=== PATIENT | female | born 1960 ===

== ENCOUNTER → 2021-02-19 07:51 | Outpatient (BNVA) | payer MEDICARE, SELFPAY | PROVIDERS: PCP Internal Medicine; Visit Provider Internal Medicine | DX: E06.3 Autoimmune thyroiditis (principal); M85.80 Other specified disorders of bone density and structure, unspecified site; E55.9 Vitamin D deficiency, unspecified | CPT/HCPCS: 99212 ==

== ENCOUNTER 2021-02-21 10:44 | Outpatient (REF) | payer MEDICARE, SELFPAY ==
[2021-02-21 14:28] LABS: Alanine Aminotransferase 20 U/L (0-31); Albumin Level 4.2 g/dL (3.5-5.0); Alkaline Phosphatase 85 U/L (39-117); Anion Gap 13 (12-20); Aspartate Amino Transferase 28 U/L (5-31); Bilirubin Total 1.3 mg/dL (0.0-1.0); Blood Urea Nitrogen 12 mg/dL (9-16); Calcium 9.4 mg/dL (8.4-10.2); Carbon Dioxide 29 mmol/L (22-29); Chloride 104 mmol/L (96-108); Estimated Glomerular Filt Rate > 60; Glucose Random 98 mg/dL (60-115); Phosphorus 3.8 mg/dL (2.7-4.5); Sodium 142 mmol/L (135-145); Total Protein 6.9 g/dL (6.5-8.0)
[2021-02-21 14:51] LABS: Thyroid Stimulating Hormone 1.49 uIU/mL (0.32-4.0)
[2021-02-24 16:20] LABS: Calcium (PTHI) 9.4 mg/dL (8.6-10.4); PTHI 68 pg/mL (14-64)
== END 2021-02-21 10:45 | disposition home or self-care (01) ==
LOC: HO.HMGCLDS 10:44
PROVIDERS: PCP Internal Medicine; Visit Provider Internal Medicine
DX: E06.3 Autoimmune thyroiditis (principal); M85.80 Other specified disorders of bone density and structure, unspecified site; E55.9 Vitamin D deficiency, unspecified
CPT/HCPCS: 36415; 80053; 82306; 83970; 84100; 84439; 84443

== ENCOUNTER 2021-02-24 11:42 | Outpatient (REF) | payer MEDICARE, SELFPAY ==
[2021-02-24 13:47] LABS: Alanine Aminotransferase 18 U/L (0-31); Albumin Level 4.3 g/dL (3.5-5.0); Alkaline Phosphatase 91 U/L (39-117); Aspartate Amino Transferase 24 U/L (5-31); Bilirubin Direct 0.4 mg/dL (0.0-0.5); Bilirubin Total 1.1 mg/dL (0.0-1.0); Total Protein 7.2 g/dL (6.5-8.0)
== END 2021-02-24 11:43 | disposition home or self-care (01) ==
LOC: HO.10HDL 11:42
PROVIDERS: Visit Provider Internal Medicine
DX: E06.3 Autoimmune thyroiditis (principal)
CPT/HCPCS: 36415; 80076

== ENCOUNTER 2021-02-26 | Outpatient (REF) | payer MEDICARE, SELFPAY ==
[2021-02-26 11:43] LABS: Creatinine, mg/dL 37.95
[2021-02-26 16:40] LABS: Creatinine, 24Hr Urine 0.9 G/Day (1.0-2.0); Total Volume 24 Hour Urine 2500 mL
[2021-02-28 20:17] LABS: Calcium, 24 Hr Urine 143 mg/24 h; Calcium/Creatinine Ratio 139 mg/g creat (30-275); Creatinine 24Hr Urine 1.03 g/24 h (0.50-2.15)
== END 2021-02-26 00:01 | disposition home or self-care (01) ==
LOC: HO.HMGCLNP
PROVIDERS: Visit Provider Internal Medicine
DX: M85.80 Other specified disorders of bone density and structure, unspecified site (principal)
CPT/HCPCS: 82340; 82570

== ENCOUNTER 2021-03-11 08:32 | Outpatient (REF) | payer MEDICARE, SELFPAY ==
--- NOTE | ~2021-03-11 | US_ITS ---
EXAMINATION: US ABDOMEN COMPLETE CLINICAL INFORMATION: Elevated liver function tests. COMPARISON: MRI abdomen without contrast 04/25/2011. CT abdomen with intravenous contrast dated 01/28/2010. Ultrasound abdomen complete dated 01/10/2008. TECHNIQUE: Real-time imaging of the abdominal viscera. FINDINGS: PANCREAS: Normal. ABDOMINAL AORTA: The proximal, mid, and distal segments are normal in caliber. INFERIOR VENA CAVA: Visualized portions are normal. LIVER: Normal. The liver is normal in size. The liver contour is normal. Parenchymal echogenicity is normal. No focal hepatic lesion. There is no intrahepatic biliary duct dilatation seen. GALLBLADDER: Surgically absent. COMMON BILE DUCT: Normal in caliber measuring 0.85 cm in diameter. RIGHT KIDNEY: Normal. No hydronephrosis. No renal calculi or focal parenchymal lesions. The kidney measures 10.0 cm in maximum dimension. LEFT KIDNEY: There is an echogenic shadowing calculus in the mid left kidney measuring 0.3 x 0.2 x 0.2 cm that is nonobstructing. No hydronephrosis or focal parenchymal lesions. The kidney measures 9.8 cm in maximum dimension. SPLEEN: Normal. The spleen measures 8.0 cm in maximum dimension. FREE FLUID: None. US/US abdomen complete IMPRESSION: 1. Normal-appearing liver. 2. The patient is status post cholecystectomy. 3. There is a nonobstructing 0.3 cm left renal calculus.
== END 2021-03-11 08:33 | disposition home or self-care (01) ==
LOC: HO.HMGCX 08:32
PROVIDERS: PCP Internal Medicine; Visit Provider Internal Medicine
DX: R79.89 Other specified abnormal findings of blood chemistry (principal); E80.6 Other disorders of bilirubin metabolism
CPT/HCPCS: 76700

== ENCOUNTER → 2021-04-08 12:36 | Outpatient (BNVA) | payer MEDICARE, SELFPAY | PROVIDERS: PCP Internal Medicine; Referring Provider Internal Medicine; Visit Provider Surgery | DX: K42.9 Umbilical hernia without obstruction or gangrene (principal) | CPT/HCPCS: 99202 ==

== ENCOUNTER 2021-05-08 14:13 | Outpatient (REF) | payer MEDICARE, SELFPAY ==
--- NOTE | ~2021-05-08 | MM_ITS ---
EXAMINATION: BONE DENSITOMETRY CLINICAL INDICATION: Encounter for screening for osteoporosis. COMPARISON: Previous BD dated 01/21/2017 and baseline BD dated 04/03/2010. TECHNIQUE: Using a [employer] DXA System (software version: 13.1) manufactured by [employer], dual-energy x-ray absorptiometry was performed of the lumbar spine and left hip. The images are of good technical quality. Summary results are attached. FINDINGS: AP SPINE L1-L4: Current: BMD 0.985 g/cm2, Z-score 0.4, T-score -1.6, osteopenia, 5.7% decrease from previous, 15.5% decrease from baseline (<5% change is not significant). Prior: BMD 1.045 g/cm2. Baseline: BMD 1.166 g/cm2. LEFT FEMUR, NECK: Current: BMD 0.717 g/cm2, Z-score -0.6, T-score -2.3, osteopenia. Prior: BMD 0.743 g/cm2. Baseline: BMD 0.859 g/cm2. LEFT FEMUR, TOTAL: Current: BMD 0.724 g/cm2, Z-score -0.8, T-score -2.3, osteopenia, 3.5% decrease from previous, 14.7% decrease from baseline (<5% change is not significant). Prior: BMD 0.750 g/cm2. Baseline: BMD 0.849 g/cm2. IDENTIFIED RISK FACTORS: Secondary osteoporosis, menopause. HISTORY OF FRACTURE: None listed. MEDICATIONS: Calcium supplements or multivitamin, vitamin D. MM/XR DEXA axial skeleton IMPRESSION: 1. DIAGNOSIS: Osteopenia based on the lowest T-score value of -2.3 in the femoral neck and total femur applying World Health Organization criteria. 2. 10-YEAR FRACTURE RISK PREDICTION, FRAX: Major osteoporotic fracture (clinical spine, forearm, hip or shoulder) 5.8%. Hip fracture 1.1%. 3. Treatment Recommendations: NOF guidelines recommend consideration for treatment in postmenopausal women and men age 50 and older presenting with the following: -A hip or vertebral (clinical or morphometric) fracture. -T-score less than or equal to -2.5 at the femoral neck or spine after appropriate evaluation to exclude secondary causes. -Low bone mass at the hip or spine and a 10-year fracture probability by FRAX of greater than or equal to 3% for hip fracture or greater than or equal to 20% for major osteoporotic fracture based on the [place] adapted WHO algorithm. 4. Other Recommendations: All treatment decisions require clinical judgment and consideration of individual patient factors, including patient preferences, comorbidities, previous drug use, risk factors not captured in the FRAX model (e.g. frailty, falls, vitamin D deficiency, increased bone turnover, interval significant decline in bone density) and possible under or overestimation of fracture risk by FRAX. Additional medical evaluation for secondary cause of low bone mineral density may be appropriate. FUTURE SCAN RECOMMENDATION: People with diagnosed cases of osteoporosis or at high risk for fracture should have regular bone mineral density tests. For patients eligible for Medicare, routine testing is allowed once every 2 years. The testing frequency can be increased to one year for patients who have rapidly progressing disease, those who are receiving or discontinuing medical therapy to restore bone mass, or have additional risk factors.
== END 2021-05-08 14:14 | disposition home or self-care (01) ==
LOC: HO.MAMMO 14:13
PROVIDERS: PCP Internal Medicine; Visit Provider Internal Medicine Rheumatology
DX: Z13.820 Encounter for screening for osteoporosis (principal); Z78.0 Asymptomatic menopausal state; M85.89 Other specified disorders of bone density and structure, multiple sites
CPT/HCPCS: 77080

== ENCOUNTER 2021-12-23 10:38 | Outpatient (REF) | payer MEDICARE, SELFPAY ==
--- NOTE | ~2021-12-23 | MM_ITS ---
EXAMINATION: MM SCREENING DIGITAL BREAST TOMOSYNTHESIS, BILATERAL CLINICAL INFORMATION: Screening. Asymptomatic. Prior [id number] mammography currently unavailable. No known family history breast cancer. The lifetime risk of breast cancer based on the Tyrer-Cuzick Model is 7%. COMPARISON: None. TECHNIQUE: Digital breast tomosynthesis is performed in both the craniocaudal and mediolateral oblique views along with computer-aided detection (CAD). Synthesized 2D images are generated from the tomosynthesis. Additional left MLO view is provided. FINDINGS: The breasts are heterogeneously dense, which may obscure small masses (ACR BI-RADS breast composition Category c). Breast tissue composition borders on average fibroglandular. There is benign coarse calcification posterior 11:00 left breast. Other scattered punctate round and mildly coarse calcifications are present in both breasts. There is no significant mass or architectural abnormality. Intramammary node suggested left upper outer quadrant. The axilla are unremarkable. Radiology department staff will attempt to retrieve prior [id number] mammography to allow for comparison in an addendum report. MM/MM tomosynthesis screening BI IMPRESSION: No mammographic evidence of malignancy. ASSESSMENT: BI-RADS 2: Benign RECOMMENDATION: Routine annual mammography screening. This patient's information was entered into a reminder system with a target due date for their next mammogram.
== END 2021-12-23 10:39 | disposition home or self-care (01) ==
LOC: HO.MAMMO 10:38
PROVIDERS: PCP Internal Medicine; Visit Provider Internal Medicine
DX: Z12.31 Encounter for screening mammogram for malignant neoplasm of breast (principal)
CPT/HCPCS: 77063; 77067

== ENCOUNTER 2022-02-13 07:52 | Outpatient (REF) | payer MEDICARE, SELFPAY ==
[2022-02-13 11:33] LABS: MANUAL DIFF FLAG NO
[2022-02-13 11:38] LABS: Basophils Absolute Auto 0.1 X10*3/uL (0.0-0.2); Basophils Percent Auto 1.1 % (0-2); Eosinophils Absolute Auto 0.2 X10*3/uL (0.0-0.4); Eosinophils Percent Auto 3.2 % (0-4); Hematocrit 40.6 % (37.0-47.0); Hemoglobin 13.1 g/dl (12.0-16.0); Imm Gran Abs Auto 0.01 X10*3/uL (0.00-0.03); Imm Gran Pct Auto 0.2 % (0.0-0.4); Mean Corpuscular HGB Conc 32.3 g/dl (31.0-35.0); Mean Corpuscular Hemoglobin 30.4 pg (27.0-33.0); Mean Corpuscular Volume 94.2 fL (80.0-98.0); Mean Platelet Volume 12.4 fL (9.4-12.3); Monocytes Absolute Auto 0.5 X10*3/uL (0.1-1.2); Monocytes Percent Auto 8.8 % (2-11); Neutrophils Absolute Auto 2.7 x10*3/uL (2.0-8.3); Neutrophils Percent Auto 49.7 % (45-73); Platelet Count 245 X10*3/uL (160-400); Red Blood Count 4.31 X10*6/uL (4.20-5.50); Red Cell Distribution Width 12.3 % (11.0-16.0); White Blood Count 5.3 X10*3/uL (4.8-10.8)
[2022-02-13 11:55] LABS: Alanine Aminotransferase 22 U/L (0-31); Albumin Level 4.2 g/dL (3.5-5.0); Alkaline Phosphatase 93 U/L (39-117); Anion Gap 12 (12-20); Aspartate Amino Transferase 25 U/L (5-31); Bilirubin Total 1.1 mg/dL (0.0-1.0); Blood Urea Nitrogen 13 mg/dL (9-16); C Reactive Protein 0.08 mg/dL (< or = 0.50); Carbon Dioxide 27 mmol/L (22-29); Chloride 107 mmol/L (96-108); Cholesterol 220 mg/dL; Estimated Glomerular Filt Rate > 60; Glucose Random 91 mg/dL (60-115); HDL Cholesterol 66 mg/dL; LDL Cholesterol Calculated 133 mg/dl; Potassium 4.6 mmol/L (3.3-5.1); Sodium 141 mmol/L (135-145); Total Protein 7.2 g/dL (6.5-8.0); Triglycerides 105 mg/dL
[2022-02-13 12:18] LABS: Free T4 (Free Thyroxine) 0.88 ng/dL (0.71-1.85); Thyroid Stimulating Hormone 3.61 uIU/mL (0.32-4.0); Vitamin D 25-OH Total 38.7 ng/mL (>30)
[2022-02-13 12:25] LABS: Erythrocyte Sedimentation Rate 9 MM/HR (0-20); Folate 16.9 ng/mL (> or = 4.0); Vitamin B12 851 pg/mL (200-900)
[2022-02-16 17:01] LABS: Complement C3 112 mg/dL (83-193)
== END 2022-02-13 07:53 | disposition home or self-care (01) ==
LOC: HO.HMGCLDS 07:52
PROVIDERS: PCP Internal Medicine; Visit Provider Internal Medicine Rheumatology
DX: M35.00 Sjogren syndrome, unspecified (principal); E78.00 Pure hypercholesterolemia, unspecified; K21.9 Gastro-esophageal reflux disease without esophagitis; N20.0 Calculus of kidney; H16.223 Keratoconjunctivitis sicca, not specified as Sjogren's, bilateral; M25.50 Pain in unspecified joint
CPT/HCPCS: 36415; 80053; 80061; 82306; 82607; 82746; 84439; 84443; 84550; 85025; 85652; 86140; 86160

== ENCOUNTER 2022-04-28 14:20 | Outpatient (REF) | payer MEDICARE, SELFPAY ==
--- NOTE | ~2022-04-28 | XR_ITS ---
EXAMINATION: XR CHEST 2 VIEWS CLINICAL INFORMATION: Chest pain. COMPARISON: Chest radiographs dated 12/23/2017. TECHNIQUE: Frontal and lateral views of the chest were obtained. FINDINGS: The heart, great vessels, pulmonary vasculature and mediastinum are normal. The lungs show no focal infiltrate, effusion or pneumothorax. There is no acute osseous abnormality. XR/XR chest 2V IMPRESSION: No active cardiopulmonary disease.
--- NOTE | ~2022-04-28 | XR_ITS ---
EXAMINATION: XR HIP, RIGHT CLINICAL INFORMATION: Pain. COMPARISON: None TECHNIQUE: AP and frog-leg lateral views of the right hip. FINDINGS: Bones and soft tissues are normal. No fracture. Alignment is anatomic. Hip joint space is maintained. A tiny enthesophyte arises from the greater tuberosity of the proximal right femur. XR/XR hip RT min 2V IMPRESSION: Normal right hip.
== END 2022-04-28 14:21 | disposition home or self-care (01) ==
LOC: HO.XRAY 14:20
PROVIDERS: PCP Internal Medicine; Visit Provider Internal Medicine
DX: R07.9 Chest pain, unspecified (principal); M25.551 Pain in right hip
CPT/HCPCS: 71046; 73502

== ENCOUNTER 2023-01-06 11:00 | Outpatient (REF) | payer MEDICARE, SELFPAY ==
--- NOTE | ~2023-01-06 | MM_ITS ---
EXAMINATION: MM SCREENING DIGITAL BREAST TOMOSYNTHESIS, BILATERAL CLINICAL INFORMATION: Screening. Asymptomatic. The lifetime risk of breast cancer based on the Tyrer-Cuzick Model is 5%. COMPARISON: Mammography: 12/23/2021; outside mammography 08/22/2020 ([place], [place]). TECHNIQUE: Digital breast tomosynthesis is performed in both the craniocaudal and mediolateral oblique views along with computer-aided detection (CAD). Synthesized 2D images are generated from the tomosynthesis. Additional left MLO view is provided. FINDINGS: The breasts are heterogeneously dense, which may obscure small masses (ACR BI-RADS breast composition Category c). Parenchymal pattern is similar to prior studies. There is no developing density or architectural abnormality. The axilla and skin contours are unremarkable. Again, there is some coarse benign calcification posterior 6 central inner left breast and scattered stable punctate calcifications mid to posterior central upper outer right breast. There are no significant masses, abnormal calcifications, or other abnormalities. No significant changes from prior studies. MM/MM tomosynthesis screening BI IMPRESSION: No mammographic evidence of malignancy. ASSESSMENT: BI-RADS 2: Benign RECOMMENDATION: Routine annual mammography screening. This patient's information was entered into a reminder system with a target due date for their next mammogram.
== END 2023-01-06 11:01 | disposition home or self-care (01) ==
LOC: HO.MAMMO 11:00
PROVIDERS: PCP Internal Medicine; Visit Provider Internal Medicine
DX: Z12.31 Encounter for screening mammogram for malignant neoplasm of breast (principal)
CPT/HCPCS: 77063; 77067

== ENCOUNTER 2023-01-08 07:20 | Outpatient (REF) | payer MEDICARE, SELFPAY ==
[2023-01-08 11:34] LABS: Appearance Urine Clear; Color Urine Yellow; Glucose Urine UA Negative (Negative); Leukocyte Esterase Urine Moderate (2+) (Negative); Nitrite Urine Negative (Negative); Specific Gravity - Urine 1.015 (1.005-1.025); UMIC TRIGGER UA YES; Urine Blood Trace (Negative); Urine Ketones Negative (Negative); Urine Protein Negative (Neg-Trace)
[2023-01-08 11:34] LABS: MANUAL DIFF FLAG NO
[2023-01-08 11:40] LABS: Bacteria Urine None Seen (None Seen); Hyaline Casts Urine 0-2 /LPF (0-2); Squamous Epithelial Cell Urine 0-2 /HPF (0-2)
[2023-01-08 11:40] LABS: Basophils Absolute Auto 0.1 X10*3/uL (0.0-0.2); Basophils Percent Auto 0.9 % (0-2); Eosinophils Absolute Auto 0.1 X10*3/uL (0.0-0.4); Eosinophils Percent Auto 2.4 % (0-4); Hematocrit 41.8 % (37.0-47.0); Hemoglobin 13.6 g/dl (12.0-16.0); Lymphocytes Absolute Auto 2.7 X10*3/uL (1.2-4.9); Lymphocytes Percent Auto 48.6 % (20-40); Mean Corpuscular HGB Conc 32.5 g/dl (31.0-35.0); Mean Corpuscular Hemoglobin 30.6 pg (27.0-33.0); Mean Corpuscular Volume 94.1 fL (80.0-98.0); Mean Platelet Volume 12.6 fL (9.4-12.3); Monocytes Absolute Auto 0.5 X10*3/uL (0.1-1.2); Monocytes Percent Auto 9.7 % (2-11); Neutrophils Absolute Auto 2.1 x10*3/uL (2.0-8.3); Neutrophils Percent Auto 38.4 % (45-73); Platelet Count 244 X10*3/uL (160-400); Red Blood Count 4.44 X10*6/uL (4.20-5.50); Red Cell Distribution Width 12.4 % (11.0-16.0); White Blood Count 5.5 X10*3/uL (4.8-10.8)
[2023-01-08 12:22] LABS: Alanine Aminotransferase 35 U/L (0-31); Albumin Level 4.1 g/dL (3.5-5.0); Alkaline Phosphatase 92 U/L (39-117); Amylase 132 U/L (28-100); Anion Gap 12 (12-20); Aspartate Amino Transferase 32 U/L (5-31); Bilirubin Total 1.3 mg/dL (0.0-1.0); Blood Urea Nitrogen 13 mg/dL (9-16); C Reactive Protein 0.11 mg/dL (< or = 0.50); Calcium 9.6 mg/dL (8.4-10.2); Carbon Dioxide 28 mmol/L (22-29); Chloride 106 mmol/L (96-108); Cholesterol 218 mg/dL; Erythrocyte Sedimentation Rate 7 MM/HR (0-20); Estimated Glomerular Filt Rate > 60; Glucose Random 91 mg/dL (60-115); HDL Cholesterol 78 mg/dL; LDL Cholesterol Calculated 110 mg/dl; Sodium 142 mmol/L (135-145); Triglycerides 150 mg/dL
[2023-01-08 12:38] LABS: Folate 16.2 ng/mL (> or = 4.0); Free T4 (Free Thyroxine) 0.88 ng/dL (0.71-1.85); Thyroid Stimulating Hormone 6.61 uIU/mL (0.32-4.0); Vitamin B12 1181 pg/mL (200-900); Vitamin D 25-OH Total 40.4 ng/mL (>30)
== END 2023-01-08 07:21 | disposition home or self-care (01) ==
LOC: HO.HMGCLDS 07:20
PROVIDERS: PCP Internal Medicine; Visit Provider Internal Medicine
DX: M35.00 Sjogren syndrome, unspecified (principal); R74.8 Abnormal levels of other serum enzymes; E78.00 Pure hypercholesterolemia, unspecified; K21.9 Gastro-esophageal reflux disease without esophagitis; M85.80 Other specified disorders of bone density and structure, unspecified site; E55.9 Vitamin D deficiency, unspecified; N20.0 Calculus of kidney
CPT/HCPCS: 36415; 80053; 80061; 81001; 82150; 82306; 82607; 82746; 84439; 84443; 85025; 85652; 86140

== ENCOUNTER 2023-02-04 09:34 | Outpatient (REF) | payer MEDICARE, SELFPAY ==
[2023-02-10 01:29] LABS: Acetylcholine Receptor Binding <0.30 nmol/L
[2023-02-13 18:23] LABS: Acetylcholine Recep Modulating 10
== END 2023-02-04 09:35 | disposition home or self-care (01) ==
LOC: HO.LAB 09:34
PROVIDERS: PCP Internal Medicine; Visit Provider Psychiatry & Neurology Neurology
DX: H02.409 Unspecified ptosis of unspecified eyelid (principal); M35.05 Sjogren syndrome with inflammatory arthritis
CPT/HCPCS: 36415; 82550; 83519; 85652

== ENCOUNTER 2023-03-29 12:05 | Outpatient (REF) | payer MEDICARE, SELFPAY ==
[2023-03-29 14:09] LABS: Free T4 (Free Thyroxine) 0.88 ng/dL (0.71-1.85); Thyroid Stimulating Hormone 3.38 uIU/mL (0.32-4.0)
== END 2023-03-29 12:06 | disposition home or self-care (01) ==
LOC: HO.HMGCLDS 12:05
PROVIDERS: PCP Internal Medicine; Visit Provider Internal Medicine
DX: R94.6 Abnormal results of thyroid function studies (principal)
CPT/HCPCS: 36415; 84439; 84443

== ENCOUNTER 2024-02-21 10:29 | Outpatient (AMB) | payer MEDICARE, SELFPAY ==
[2024-02-21 10:31] VITALS: BP 102/68; PULSE 73; O2SAT 97; BMI 20.9
--- NOTE | 2024-02-21 10:31 | MHC.PC.OV ---
Vital Signs 02/21/24 10:31 Height 5 ft Weight 107 lb BMI 20.9 BP 102/68 Blood Pressure Location Lt brachial Position Sitting Pulse 73 Pulse Source Pulse Oximeter Pulse Oximetry (%) 97 Oxygen Delivery Method Room Air Intake Visit Reasons: Annual Exam Intake Note: Patient is here today for a physical. 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 Medication List - Last Reconciled 02/21/24 by Miranda Potts PA-C ascorbate calcium (vitamin C) 500 mg PO DAILY famotidine 20 mg PO DAILY comkuplvkhxb-izfc-ppxqb acid 18-400 mg-mcg (Centrum Women) 1 tab PO DAILY omega-3 fatty acids (Fish Oil Concentrate) 1,000 mg PO DAILY vitamin E 200 units PO DAILY Tobacco use date assessed: 02/21/24 Fall risk assessment: No Falls in past year Last assessed Fall Risk: 02/21/24 Dental Screening Dental Screen Date: 02/21/24 Did you have a dental visit in the last 12 months?: Yes Did you have a dental problem in the last 6 months where you did not have access to dental care?: No Was dental information given to patient?: Patient has dentist HPI Annual Exam HPI Details 63-year-old female with past medical history of Greg's, GERD, IBS last seen by Dr. Courtney 12/17/2022 coming in for annual exam.? In review of the notes, the patient had a mammogram completed 01/19/2024 BI-RADS 1 follow up annually.?Patient also completed the DEXA scan 02/07/2024 which found osteopenia.?Pap smear was completed 03/10/2023 was negative.?Patient was seen by Neurology 02/04/2023 for ptosis was sent for labs and follow-up in 6 weeks and has not followed up since. MRI was negative for any abnormality. She has been having phlegm and often has to clear her throat which has been ongoing for the last year or so. Her acid reflux has been under good control but she does note she has a lot of diet restrictions and also has to sleep with the head of the bed elevated. She has been using famotidine as needed [id number]. She also mentioned she has not followed up with neurology since her MRI. Was seen by a doctor in [place] and was told her cholesterol was elevated. She is unsure of the status of her last colonoscopy. Seen by the eye doctor last week but due to system outage has to reschedule. [facility] Medical History (Updated 02/21/24 @ 11:20 by Miranda Potts PA-C) Pineal gland cyst Hemorrhoids Left renal stone Bile salt-induced diarrhea Irritable bowel syndrome Sjogrens syndrome GERD (gastroesophageal reflux disease) Hyperbilirubinemia Vitamin D deficiency Greg's disease Surgical History History of fundoplication History of elbow surgery History of tonsillectomy History of Del fundoplication Hx of rotator cuff surgery Hx of cholecystectomy Hx of colonoscopy History of right lateral epicondylitis Family History (Updated 12/17/22 @ 10:48 by Ruslan Courtney MD) Father FH: prostate cancer Mother Arthritis Glaucoma Paternal Grandfather Myocardial infarct Maternal Grandfather Skin cancer Sister Ovarian cancer Social History Housing: House Alcohol intake: never Patient Tobacco Use Status: Never used Tobacco e-Cigarette/Vaping Use: Never Used Second Hand Smoke Exposure: No service: No Current occupational status: unemployed Cognitive needs: No Hearing needs: No Vision needs: Yes Questionnaire PHQ-9 Over the last 2 weeks, how often have you been bothered by any of the following problems? 1. Little interest or pleasure in doing things: not at all 2. Feeling down, depressed, or hopeless: several days 3. Trouble falling or staying asleep, or sleeping too much: not at all 4. Feeling tired or having little energy: not at all 5. Poor appetite or overeating: not at all 6. Feeling bad about yourself - or that you are a failure or have let yourself or your family down: not at all 7. Trouble concentrating on things, such as reading the newspaper or watching television: not at all 8. Moving or speaking so slowly that other people could have noticed. Or the opposite - being so fidgety or restless that you have been moving around a lot more than usual: not at all 9. Thoughts that you would be better off or of hurting yourself in some way: not at all Total score: 1 Depression Screening Interpretation: Negative Depression Screening Done: Yes [id number] - PHQ-9 Billing: Yes Source: Developed by Drs. Kedar Butler, Simona Mireles, Curtis Arita and colleagues, with an educational vaishali from [employer]. Thrive Questionnaire Date Thrive assessed: 02/21/24 I am a: Patient What is your living situation today?: I have a steady place to live Within the past 12 months, did the food you bought not last and you didn't have the money to get more?: Never true Within the past 12 months, did you worry whether your food would run out before you got money to buy more?: Never true Do you have trouble paying for medicines?: No Do you have trouble getting transportation to medical appointments?: No Do you have trouble paying your heating and electricity bill?: No Do you have trouble taking care of your child, family member or friend?: No Do you have trouble with day-to-day activities such as bathing, preparing meals, shopping, managing finances, etc.?: No Are you currently unemployed and looking for a job?: No Are you interested in more education?: No THRIVE Score: 0 AUDIT C Alcohol Use Questionnaire (AUDIT-C) 1. How often do you have a drink containing alcohol?: Never 2. How many drinks containing alcohol do you have on a typical day when you are drinking?: 1 or 2 3. How often do you have six or more drinks on one occasion?: Never Total Score: 0 RENETTA-7 AMB Questionnaire RENETTA-7 Date RENETTA - 7 assessed: 02/21/24 Feeling nervous, anxious, or on edge: 0 = Not at all Not being able to stop or control worryin = Not at all Worrying too much about different things: 0 = Not at all Trouble relaxin = Not at all Being so restless that it is hard to sit still: 0 = Not at all Becoming easily annoyed or irritable: 0 = Not at all Feeling afraid as if something awful might happen: 0 = Not at all Total RENETTA-7 score (0-4 normal; 5-9 mild; 10-14 moderate; 15-21 severe): 0 Source: Developed by Simona Abel [employer], Curtis Arita and colleagues, with an educational vaishali from [employer]. RENETTA-7 Assessment Billing RENETTA-7 Assessment Tool: RENETTA-7 Assessment 75085 Review of Systems Const Denies body aches, Denies fatigue, Denies fever(s), Denies frequent falls, Denies headache(s) and Denies weakness Eyes Reports no additional complaints and Denies change in vision ENT Details: Reports of phlegm throughout the day worse in the morning. Denies dysphagia, Denies dizziness, Denies facial pain, Denies headache(s), Denies nasal congestion and Denies odynophagia Card Denies chest pain, Denies syncope, Denies irregular heart rhythm, Denies leg edema, Denies lightheadedness and Denies dyspnea Resp Denies cough and Denies dyspnea GI Denies constipation, Denies dysphagia, Denies dyspepsia, Denies diarrhea, Denies nausea, Denies odynophagia and Denies vomiting Denies urinary frequency, Denies dysuria, Denies urinary hesitancy and Denies urinary urgency Musc Details: Right hip pain worse with ambulation Denies back pain and Denies myalgias Skin/Breast Reports system reviewed and no additional complaints, except as documented Neuro Denies dizziness, Denies syncope, Denies frequent falls, Denies headache(s) and Denies weakness Psych Reports no additional complaints Endo Denies fatigue Physical exam (Primary Care) Vital Signs: Last Vital Signs Pulse 73 02/21/24 10:31 BP 102/68 02/21/24 10:31 Pulse Ox 97 02/21/24 10:31 Oxygen Delivery Method Room Air 02/21/24 10:31 BMI result Body Mass Index 20.9 Tobacco/Smoking Status: Tobacco use Status Tobacco use date assessed 02/21/24 02/21/24 10:34 Patient Tobacco Use Status Never used Tobacco 02/21/24 10:34 e-Cigarette/Vaping Use Never Used 02/21/24 10:34 PHQ-9: PHQ-9 Score PHQ-9: Total score 1 02/21/24 11:33 Depression Screening Interpretation: Negative Thrive Assessment: Date of Thrive Assessment Date Thrive assessed 02/21/24 02/21/24 10:34 Const General: cooperative, healthy appearing, comfortable and no acute distress Orientation/consciousness: patient oriented x3 HENMT Head: Yes normocephalic Ears: hearing grossly normal bilaterally, external ears normal, TM's normal bilaterally and EAC's normal General nose exam: Normal external nose present Face and sinus: Yes normal facial exam and Yes sinuses nontender Mouth: Normal oral and palatal mucosa present and tongue normal Throat: Yes posterior oropharynx normal Eyes General: appearance normal, both eyes and all related structures Conjunctivae: conjunctivae normal Pupils: Equal, round and reactive pupils present EOM: EOMs intact bilaterally and No Nystagmus present Neck Neck: Yes normal visual inspection, Yes full ROM and Yes no lymphadenopathy Chest Chest palpation & inspection: normal inspection of the chest Resp Effort & Inspection: normal respiratory effort Auscultation: clear to auscultation bilaterally, no crackles, no rales, no rhonchi, no wheezes and breath sounds present Cardio Rate: regular rate Rhythm: regular rhythm Peripheral pulses: radial pulses present and dorsalis pedis present GI Inspection: Yes normal to inspection and No Abdominal wall edema Palpation (GI): Soft to palpation, not firm and nontender Auscultation: normal bowel sounds Rectal Exam - Female: deferred General: Yes no CVA tenderness Back/Spine/Pelvis Back: no CVA tenderness Skin General skin exam: no rashes or lesions noted Neuro General: patient oriented x3 Cranial nerves: Yes Equal, round and reactive pupils present, Yes Midline tongue present, Yes Ability to bilaterally elevate shoulders present and No Nystagmus present Gait exam (Neuro): Normal gait present Extrem Other: Tenderness to palpation over posterior lateral aspect of right hip General: Yes normal to inspection, Yes full ROM, No no pedal edema and No edema Psych Speech and movement: Normal speech and movement present Affect: normal affect Insight: Good insight present (Psych) Judgement: Good judgement present (Psych) Assessment and Plan Assessment & Plan (1) Annual physical exam: Code(s): Z00.00 - Encounter for general adult medical examination without abnormal findings Plan: Patient is up-to-date on all recommended screenings for her age. She is unsure about the date of her last colonoscopy and will have records faxed from [place] to our office. Patient is reminded about blood work. She is unsure if her tetanus shot is up-to-date and will have these records faxed from [place] as well. (2) Hip pain: Code(s): M25.559 - Pain in unspecified hip Qualifiers: Laterality: right Qualified Code(s): M25.551 - Pain in right hip Plan: Patient states she has no allergies to ibuprofen or naproxen. She is currently using Tylenol and Aspercreme for pain management. She has declined x-rays at this time. Physical exam findings are most consistent with bursitis of the hip. She has previously had a cortisone injection in the left hip while in [place] and found improvement in her symptoms. Advised patient to use Voltaren gel on the affected area and this prescription was sent to her pharmacy. If pain persists or worsen we will consider x-rays and referral to Orthopedics for a cortisone injection. (3) GERD (gastroesophageal reflux disease): Comment: Gastritis Dr. Douglas LIU May 2010, March 2013 Code(s): K21.9 - Gastro-esophageal reflux disease without esophagitis Plan: She is no longer using omeprazole for her symptoms and only using famotidine as needed. She does sleep with 3 pillows at night and tries to avoid triggers. She is complaining of persistent phlegm worse in the morning which improved slightly throughout the day. This may be related to her GERD. Advised patient to take famotidine daily to see if symptoms improve and follow up if symptoms worsen or do not improve. Avoid trigger foods such as citrus, tomato products, soda, caffeine, spicy foods and other foods that may be irritating to your stomach. Avoid laying flat 3-4 hours after eating and elevate the head of the bed 30 degrees to prevent acid from moving into the esophagus. (4) Sjogrens syndrome: Code(s): M35.00 - Sjogren syndrome, unspecified Plan: Continue to monitor. Currently well managed by patient. (5) Osteopenia: Code(s): M85.80 - Other specified disorders of bone density and structure, unspecified site Plan: Patient was found to have osteopenia on last Dexa scan. Recommended low-impact weight-bearing exercises to strengthen bones. Patient is unable to take in high amounts of dietary calcium due to intolerance to dairy. Recommend adding a calcium supplement along with the D3 supplement to med regimen. Warned patient that additional calcium may be constipating. (6) Ptosis: Code(s): H02.409 - Unspecified ptosis of unspecified eyelid Plan: Patient was seen by Neurology 12/2022 and completed MRI at that time which was found to be unremarkable. Patient has not followed back up with Neurology and encouraged to schedule additional appointment. 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 Reminded patient about updated blood work to evaluate for thyroid function. Plan This note was constructed using voice recognition software.? While every effort has been made to ensure accuracy and delivery department supervisor, still areas may have been included sometimes these areas may affect the content or meeting of the given symptoms.? Total time spent caring for the patient today was 45 minutes.? This includes time spent before the visit reviewing the chart, time spent during the visit, and time spent after the visit and documentation. Orders: Orders Complete Blood Count Auto Diff Today Z00.00 - Encounter for general adult medical examination without abnormal findings Free T4 (Free Thyroxine) Today Z00.00 - Encounter for general adult medical examination without abnormal findings TSH reflex Free T4 Today Z00.00 - Encounter for general adult medical examination without abnormal findings Lipid Panel Today Z00.00 - Encounter for general adult medical examination without abnormal findings Comprehensive Met. Panel Today Z00.00 - Encounter for general adult medical examination without abnormal findings Medications: New diclofenac sodium 1% (Voltaren Arthritis Pain) apply to hip, wrist or hand; for hand includes palm/fingers/back of hand 2 grams topical QID 100 grams 0RF Coding Level of Care Code Est Pt Level 4 (76848) Diagnoses Annual physical exam Z00.00 Pain of right hip M25.551 Laterality: right GERD (gastroesophageal reflux disease) K21.9 Sjogrens syndrome M35.00 Osteopenia M85.80 Ptosis H02.409 Greg's disease E06.3 Additional Codes RENETTA-7 Assessment Billing - RENETTA-7 Assessment Tool: RENETTA-7 Assessment 46091 ([id number])
== END 2024-02-21 11:34 | disposition home or self-care (01) ==
PROVIDERS: PCP Internal Medicine
DX: Z00.00 Encounter for general adult medical examination without abnormal findings (principal); M35.00 Sjogren syndrome, unspecified; K21.9 Gastro-esophageal reflux disease without esophagitis; M25.551 Pain in right hip; M85.80 Other specified disorders of bone density and structure, unspecified site; E06.3 Autoimmune thyroiditis
CPT/HCPCS: 99397

== ENCOUNTER 2024-02-23 07:43 | Outpatient (REF) | payer MEDICARE, SELFPAY ==
[2024-02-23 10:20] LABS: MANUAL DIFF FLAG NO
[2024-02-23 10:38] LABS: Basophils Absolute Auto 0.1 X10*3/uL (0.0-0.2); Eosinophils Absolute Auto 0.1 X10*3/uL (0.0-0.4); Eosinophils Percent Auto 2.7 % (0-4); Hematocrit 39.3 % (37.0-47.0); Hemoglobin 13.4 g/dl (12.0-16.0); Imm Gran Abs Auto 0.01 X10*3/uL (0.00-0.03); Imm Gran Pct Auto 0.2 % (0.0-0.4); Lymphocytes Absolute Auto 2.1 X10*3/uL (1.2-4.9); Lymphocytes Percent Auto 43.3 % (20-40); Mean Corpuscular HGB Conc 34.1 g/dl (31.0-35.0); Mean Corpuscular Hemoglobin 31.8 pg (27.0-33.0); Mean Corpuscular Volume 93.3 fL (80.0-98.0); Mean Platelet Volume 12.3 fL (9.4-12.3); Monocytes Absolute Auto 0.5 X10*3/uL (0.1-1.2); Monocytes Percent Auto 9.6 % (2-11); Neutrophils Absolute Auto 2.1 x10*3/uL (2.0-8.3); Neutrophils Percent Auto 43.2 % (45-73); Platelet Count 234 X10*3/uL (160-400); Red Blood Count 4.21 X10*6/uL (4.20-5.50); Red Cell Distribution Width 12.1 % (11.0-16.0); White Blood Count 4.9 X10*3/uL (4.8-10.8)
[2024-02-23 11:07] LABS: Alanine Aminotransferase 17 U/L (0-31); Albumin Level 4.3 g/dL (3.5-5.0); Alkaline Phosphatase 83 U/L (39-117); Anion Gap 12 (12-20); Aspartate Amino Transferase 26 U/L (5-31); Bilirubin Total 1.2 mg/dL (0.0-1.0); Blood Urea Nitrogen 12 mg/dL (9-16); Calcium 9.7 mg/dL (8.4-10.2); Carbon Dioxide 28 mmol/L (22-29); Chloride 105 mmol/L (96-108); Cholesterol 208 mg/dL (<200); Estimated Glomerular Filt Rate > 60; Glucose Random 95 mg/dL (60-115); HDL Cholesterol 71 mg/dL (>40); LDL Cholesterol Calculated 115 mg/dL (<100); Potassium 3.6 mmol/L (3.3-5.1); Sodium 141 mmol/L (135-145); Total Protein 7.3 g/dL (6.5-8.0); Triglycerides 113 mg/dL (<150)
[2024-02-23 11:32] LABS: TSH reflex Free T4 4.32 uIU/mL (0.32-4.0)
== END 2024-02-23 07:44 | disposition home or self-care (01) ==
LOC: HO.HMGCLDS 07:43
PROVIDERS: PCP Internal Medicine
DX: Z00.00 Encounter for general adult medical examination without abnormal findings (principal); Z20.2 Contact with and (suspected) exposure to infections with a predominantly sexual mode of transmission
CPT/HCPCS: 36415; 80053; 80061; 84439; 84443; 85025

== ENCOUNTER 2024-04-21 11:30 | Outpatient (REF) | payer MEDICARE, SELFPAY ==
[2024-04-21 13:09] LABS: Influenza A PCR NEGATIVE (Negative); Influenza B PCR NEGATIVE (Negative); Resp Syncy Virus RNA Qual PCR NEGATIVE (Negative); SARS COV2 PCR INHOUSE NEGATIVE (Negative)
[2024-04-21 13:24] LABS: Free T4 (Free Thyroxine) 0.84 ng/dL (0.71-1.85); Thyroid Stimulating Hormone 3.18 uIU/mL (0.32-4.0)
== END 2024-04-21 11:31 | disposition home or self-care (01) ==
LOC: HO.LAB 11:30
PROVIDERS: PCP Internal Medicine
DX: Z00.00 Encounter for general adult medical examination without abnormal findings (principal); R09.89 Other specified symptoms and signs involving the circulatory and respiratory systems
CPT/HCPCS: 0241U; 36415; 84439; 84443

== ENCOUNTER 2025-02-20 11:30 | Outpatient (AMB) | payer MEDICARE, SELFPAY ==
--- OUTSIDE RECORDS SUMMARY | 2022-11-29 20:00 | XMS_ITS | Continuity of Care Document ---
Author Organization [facility] Address [address] [place] [address] Phone Care Team Providers Care Underwater Welder Name Role Phone De OD, Mandi Unavailable Unavailable Allergies, Adverse Reactions, Alerts Substance Reaction Status Criticality No Known Drug Allergies Active No I nformation No Known Drug Allergies Active No I nformation Advance Directives Directive Yes / No Effective Date File Name No Information Encounters Encounter Description Practice Location Reason(s) For Visit Diagnoses Date Provider Providers Copied on Encounter [facility], [address] [place], [place], [id number] , [place] tel:[phone] [facility] Blepharospasm [address]. [address] [place], [address], [place]. tel:[phone] [facility], [facility] [place], [place], [id number] , [place] tel:[phone] [place] [facility] Exposure keratoconjunctiviti s, bilateralPuckering of macula, bilateralUnspecifie d superficial keratitis, bilateralOpen angle with borderline findings, low risk, bilateralCombined forms of age-related cataract, bilateralKeratoconj unctivitis sicca, not specified as Sjogren's, bilateral 2 Morchesky OD Sohan. [address], [place], [address], [place]. tel:[phone] [facility], [address], [place], [id number] , tel: [phone] [facility] Cortical age-related cataract, bilateralSquamous blepharitis left eye, upper and lower eyelidsSquamous blepharitis right eye, upper and lower eyelidsPuckering of macula, bilateralKeratoconj unctivitis sicca, not specified as Sjogren's, bilateralAge-relate d nuclear cataract, bilateralOpen angle with borderline findings, low risk, bilateral Jul- 1 Morchesky OD Sohan. [address], [place], [address], [place]. tel:[phone] [facility], [address] [place] [address], [id number] , tel: [phone] [facility] Hordeolum internum left lower eyelidUnspecified blepharitis left eye, upper and lower eyelidsOpen angle with borderline findings, low risk, bilateral Sep-08 02- 1 [facility]. [address] [place] [address], [facility], . tel:[phone] [facility], [facility] [place], [place], [id number] , tel: [phone] [facility] Unspecified blepharitis left eye, upper and lower eyelidsOpen angle with borderline findings, low risk, bilateralHordeolum internum left lower eyelid Mar-0 - 1 [facility]. [address] [place] [address], [facility], . tel:[phone] Family History Family Member Type Diagnosis Age At Onset Mother Biological Problem (finding) Fhx of degen erative disorder of macula Payers Payer name Insurance type Covered democrat ID Authoriza tion(s) No Information Social History Type Description Quantity Date Captured Comments Alcohol Use Details Unknown Caffeine Use Details Unknown Tobacco Use Status Former smoker Smoking Status Former smoker Non-Smoking Tobacco Use Details : No Details Available : No Details Available Sex Female Chief Complaint And Reason For Visit No Information Reason For Referral Reason For Referral No Information History Of Present Illness Encounter Date Complaint History Of Prese nt Illness No Information Functional Status Date Functional Assessmen t No Information Instructions Date Instruction Additional Infor spring Impression/Plan Related to [facility] revealed blepharospasm. Impression/Plan Related to [facility] revealed cataract. Impression/Plan Related to [facility] reveals keratoconjunctivitis sicca. Impression/Plan Related to Expos ure keratoconjunctivitis, bilateral Impression/Plan Related to [facility] revealed superficial keratitis.. 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 Impression/Plan Related to [facility] reveals keratoconjunctivitis sicca. Impression/Plan Related to [facility] revealed squamous blepharitis. Impression/Plan Related to [facility] revealed squamous blepharitis. 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 Impression/Plan Related to [facility] revealed a macular pucker. Impression/Plan Related to Diagn osis Description: Hordeolum internum left lower eyelid \nDiagnosis Code: 373.12 Impression/Plan Related to Diagn osis Description: Blepharitis of both upper and lower eyelid of left eye \nDiagnosis Code: 373.00 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 in both eyes \nDiagnosis Code: 365.01 Impression/Plan Related to Diagn osis Description: Blepharitis of both upper and lower eyelid of left eye \nDiagnosis Code: 373.00 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 in both eyes \nDiagnosis Code: 365.01 Impression/Plan Related to Diagn osis Description: Hordeolum internum left lower eyelid \nDiagnosis Code: 373.12 Assessments Type Assessment Date No Information Patient Care Teams Name Effective Dates (start - stop) Status Members No Information
[2025-02-20 11:31] VITALS: BP 100/62; PULSE 71; RESP 16; TEMP 36.1; O2SAT 100; BMI 19.9
--- NOTE | 2025-02-20 11:31 | A.OFFPC_ITS ---
Vital Signs 02/20/25 11:31 Height 5 ft Weight 102 lb BMI 19.9 BP 100/62 Blood Pressure Location Lt brachial Position Sitting Respiration 16 Pulse 71 Pulse Source Pulse Oximeter Temp 97.0 F Temp Source Temporal Artery Scan Pulse Oximetry (%) 100 Oxygen Delivery Method Room Air Intake Visit Reasons: Annual pe Allergies aspirin Allergy (Severe, Verified 02/20/25 11:33) headaches, not feeling well Sulfa (Sulfonamide Antibiotics) Allergy (Unknown, Verified 02/20/25 11:33) Unknown. Medication List - Last Reconciled 02/20/25 by Ruslan Courtney MD ascorbate calcium (vitamin C) 500 mg PO DAILY diclofenac sodium 1% (Voltaren Arthritis Pain) 2 grams topical QID famotidine 20 mg PO DAILY magnesium oxide 400 mg PO DAILY mecobalamin (vitamin B12) 1,000 mcg PO DAILY jhhtjzmhwwph-hmtd-trbst acid 18-400 mg-mcg (Centrum Women) 1 tab PO DAILY omega-3 fatty acids (Fish Oil Concentrate) 1,000 mg PO DAILY vitamin E 200 units PO DAILY Tobacco use date assessed: 02/20/25 Fall risk assessment: 1 Fall in past year Last assessed Fall Risk: 02/20/25 Dental Screening Dental Screen Date: 02/20/25 Did you have a dental visit in the last 12 months?: Yes Did you have a dental problem in the last 6 months where you did not have access to dental care?: No Was dental information given to patient?: Patient has dentist HPI Annual pe HPI Details occ night sweats, different from night sweats PFSH Medical History Pineal gland cyst Hemorrhoids Left renal stone Bile salt-induced diarrhea Irritable bowel syndrome Sjogrens syndrome GERD (gastroesophageal reflux disease) Hyperbilirubinemia Vitamin D deficiency Greg's disease Surgical History History of fundoplication History of elbow surgery History of tonsillectomy History of Del fundoplication Hx of rotator cuff surgery Hx of cholecystectomy Hx of colonoscopy History of right lateral epicondylitis Family History Father FH: prostate cancer Mother Arthritis Glaucoma Paternal Grandfather Myocardial infarct Maternal Grandfather Skin cancer Sister Ovarian cancer Social History (Updated 02/20/25 @ 11:49 by Ruslan Courtney MD) Housing: House Alcohol intake: never Comment: 1 month small glass Patient Tobacco Use Status: Never used Tobacco e-Cigarette/Vaping Use: Never Used Second Hand Smoke Exposure: No service: No Current occupational status: unemployed Cognitive needs: No Hearing needs: No Vision needs: Yes Questionnaire PHQ-9 Over the last 2 weeks, how often have you been bothered by any of the following problems? 1. Little interest or pleasure in doing things: nearly every day 2. Feeling down, depressed, or hopeless: not at all 3. Trouble falling or staying asleep, or sleeping too much: more than half the days 4. Feeling tired or having little energy: not at all 5. Poor appetite or overeating: not at all 6. Feeling bad about yourself - or that you are a failure or have let yourself or your family down: not at all 7. Trouble concentrating on things, such as reading the newspaper or watching television: not at all 8. Moving or speaking so slowly that other people could have noticed. Or the opposite - being so fidgety or restless that you have been moving around a lot more than usual: not at all 9. Thoughts that you would be better off or of hurting yourself in some way: not at all Total score: 5 Depression Screening Interpretation: Negative Depression Screening Done: Yes 27158 - PHQ-9 Billing: Yes Source: Developed by Drs. Kedar Butler, Simona Mireles, Curtis Arita and colleagues, with an educational vaishali from [employer]. Thrive Questionnaire Date Thrive assessed: 02/20/25 I am a: Patient What is your living situation today?: I have a steady place to live Within the past 12 months, did the food you bought not last and you didn't have the money to get more?: Never true Within the past 12 months, did you worry whether your food would run out before you got money to buy more?: I choose not to answer this question Do you have trouble paying for medicines?: No Do you have trouble getting transportation to medical appointments?: No Do you have trouble paying your heating and electricity bill?: No Do you have trouble taking care of your child, family member or friend?: No Do you have trouble with day-to-day activities such as bathing, preparing meals, shopping, managing finances, etc.?: No Are you currently unemployed and looking for a job?: No Are you interested in more education?: No Please select the resources that you would like help with: None Currently or been in a relationship where the following occur: I choose not to answer THRIVE Score: 0 AUDIT C Alcohol Use Questionnaire (AUDIT-C) 1. How often do you have a drink containing alcohol?: Never 3. How often do you have six or more drinks on one occasion?: Never Total Score: 0 RENETTA-7 AMB Questionnaire RENETTA-7 Date RENETTA - 7 assessed: 02/20/25 Feeling nervous, anxious, or on edge: 2 = More than half the days Not being able to stop or control worryin = Nearly every day Worrying too much about different things: 3 = Nearly every day Trouble relaxin = Nearly every day Being so restless that it is hard to sit still: 3 = Nearly every day Becoming easily annoyed or irritable: 3 = Nearly every day Feeling afraid as if something awful might happen: 0 = Not at all Total RENETTA-7 score (0-4 normal; 5-9 mild; 10-14 moderate; 15-21 severe): 17 Source: Developed by Drs. Kedar Butler, Simona Mireles, Curtis Arita and colleagues, with an educational vaishali from [employer]. RENETTA-7 Assessment Billing RENETTA-7 Assessment Tool: RENETTA-7 Assessment 03225 Review of Systems Const Denies poor appetite and Denies weakness Eyes Denies no additional complaints ENT Reports Normal hearing present, Denies dizziness, Denies nasal congestion, Denies tinnitus and Denies sore throat Card Denies chest pain, Denies syncope, Denies rapid heart rate and Denies dyspnea Resp Denies cough and Denies dyspnea GI Denies change in stool character, Reports constipation, Denies diarrhea, Denies nausea and Denies vomiting Denies urinary frequency, Denies difficulty voiding and Denies dysuria Neuro Reports Normal hearing present, Denies confusion, Denies dizziness, Denies syncope and Denies weakness Psych Denies confusion Physical exam (Primary Care) Vital Signs: Last Vital Signs Temp 97.0 F 02/20/25 11:31 Pulse 71 02/20/25 11:31 Resp 16 02/20/25 11:31 BP 100/62 02/20/25 11:31 Pulse Ox 100 02/20/25 11:31 Oxygen Delivery Method Room Air 02/20/25 11:31 BMI result Body Mass Index 19.9 Tobacco/Smoking Status: Tobacco use Status Tobacco use date assessed 02/20/25 02/20/25 11:35 Patient Tobacco Use Status Never used Tobacco 02/20/25 11:35 e-Cigarette/Vaping Use Never Used 02/20/25 11:35 PHQ-9: PHQ-9 Score PHQ-9: Total score 5 02/20/25 11:35 Depression Screening Interpretation: Negative Thrive Assessment: Date of Thrive Assessment Date Thrive assessed 02/20/25 02/20/25 11:35 Currently or been in a relationship where the following occur: I choose not to answer Const General: No confusion Orientation/consciousness: No confusion HENMT Head: Yes normocephalic Ears: external ears normal and TM's normal bilaterally Face and sinus: Yes normal facial exam Mouth: moist mucous membranes Throat: Yes tonsils normal Eyes Conjunctivae: conjunctivae normal Pupils: Equal, round and reactive pupils present and Pupil accommodation reflex normal Direct Ophthalmoscopy: normal light reflex Neck Neck: No lymphadenopathy Thyroid: Thyroid normal Chest Chest palpation & inspection: normal inspection of the chest Resp Effort & Inspection: normal respiratory effort and no audible wheezes Auscultation: clear to auscultation bilaterally, no crackles, no wheezes and lung sounds not diminished Cardio Rate: regular rate Rhythm: regular rhythm Peripheral pulses: radial pulses present and dorsalis pedis present GI Palpation (GI): no masses Auscultation: normal bowel sounds and normoactive bowel sounds Rectal Exam - Female: deferred Skin General skin exam: no rashes or lesions noted Rashes: no rashes Neuro General: No confusion Cranial nerves: Yes Equal, round and reactive pupils present and Yes Normal hearing present Cognition (Neuro): normal cognition Gait exam (Neuro): Normal gait present Motor exam (neuro): 5/5 motor strength present throughout Deep tendon reflexes (DTR's): Right brachioradialis reflex intensity grade: 2+, Left brachioradialis reflex intensity grade: 2+, Right patellar reflex intensity grade: 2+ and Left patellar reflex intensity grade: 2+ Extrem General: No edema Coding Level of Care Code Est Pt Prev Care >65y(58317) Diagnoses Annual physical exam Z00.00 GERD (gastroesophageal reflux disease) K21.9 Additional Codes RENETTA-7 Assessment Billing - RENETTA-7 Assessment Tool: RENETTA-7 Assessment 76573 ([id number]) PHQ-9 - 82914 - PHQ-9 Billing: Yes ([id number]) Assessment & Plan Assessment & Plan (1) Annual physical exam: Code(s): Z00.00 - Encounter for general adult medical examination without abnormal findings Category: Medical Plan: Patient is advised to eat healthy, keep well hydrated, keep active and have adequate sleep. (2) GERD (gastroesophageal reflux disease): Comment: Gastritis Dr. Doulgas LIU May 2010, March 2013 Code(s): K21.9 - Gastro-esophageal reflux disease without esophagitis Category: Medical Plan: Avoid the foods that causes that usually spicy foods, tomato products, juices, coffee, soda and foods that your sensitive to. After eating do not lie down, allow 3-4 hours before in lie down. And keep the head of bed above 30 degrees to avoid the acid from going up. Plan History of Present Illness The patient is a 64-year-old female presenting for an annual physical examination and follow-up on chronic conditions. She reports a 5-pound unintentional weight loss since her last visit, although her appetite remains normal. The patient has a history of Gastroesophageal Reflux Disease (GERD) managed with famotidine, which she takes once daily. She experiences occasional heartburn despite medication. She has Sj?gren's Syndrome, which contributes to significant dryness, particularly in her eyes, necessitating the use of sunglasses. The patient also reports dryness in other areas, consistent with her diagnosis. The patient has a history of nephrolithiasis and reports occasional flank pain, although no recent episodes of kidney stones have been noted. She is advised to maintain adequate hydration to prevent recurrence. In 2020, she underwent repair of an umbilical hernia, with no reported complications since the procedure. The patient was diagnosed with cervical radiculopathy following an episode of neck pain and left arm tingling, which was evaluated in the emergency room in January 2024. She reports improvement with medication. She reports joint pain consistent with arthritis, particularly affecting her knees and other joints, which worsens at night. There is no associated swelling, and she manages symptoms with lifestyle modifications. Preventative care measures include colon cancer screening with Cologuard, last performed in September 2020, and bone density screening in January 2024. Her last ma mmogram was in December 2022, and she is due for another this year. Health Maintenance - Colon cancer screening with Cologuard, last performed in September 2020. - Bone density screening conducted in January 2024. - Mammogram last performed in December 2022, due for repeat this year. - Encouraged to maintain adequate hydration to prevent nephrolithiasis recurrence. Social History - Alcohol: Consumes alcohol occasionally, approximately once a month. - Smoking: Denies tobacco use. - Exercise: Engages in regular physical activity. - Diet: Reports a balanced diet, with occasional dietary indulgences. Review of Systems - General: Reports unintentional weight loss of 5 pounds. Denies fever, chills, or night sweats. - HEENT: Reports dryness in eyes. Denies sore throat or ear pain. - Cardiovascular: Denies chest pain or palpitations. - Respiratory: Denies dyspnea or cough. - Gastrointestinal: Reports occasional heartburn. Denies nausea or vomiting. - Musculoskeletal: Reports joint pain, particularly in knees. Denies swelling. - Neurological: Reports tingling in left arm. Denies headaches or dizziness. - Genitourinary: Denies dysuria or hematuria. Physical Exam General: Cooperative, healthy appearing, comfortable, no acute distress and well developed Orientation: Patient oriented x3 Limitations: No limitations Head: Normal to inspection Ears: Hearing grossly normal bilaterally, but noted presence of ear wax Nose: Normal external nose present, occasional runny nose noted Face and sinus: Normal facial exam Eyes: Appearance normal, both eyes and all related structures Neck: Normal visual inspection, full ROM, but patient complains of neck pain Respiratory: Normal respiratory effort and able to speak in complete sentences. Clear to auscultation bilaterally Cardiovascular: Regular rate and rhythm. Normal S1 and S2 GI: Normal to inspection. Soft to palpation and nontender, but patient reports occasional heartburn Skin: No rashes or lesions noted Neuro: Patient oriented x3 Extremities: Normal to inspection, but patient reports occasional leg cramps and joint pain, likely arthritis Results - Labs: Normal blood count, electrolytes, renal function, blood sugar, and liver function tests in January 2024. - Cholesterol: LDL cholesterol at 115 mg/dL. - Thyroid: Normal thyroid function tests, with repeat scheduled for April 2024. Plan The patient will continue current management for Gastroesophageal Reflux Disease GERD) with famotidine, and dietary modifications will be reinforced to manage symptoms. For Sj?gren's Syndrome, the patient is advised to continue using sunglasses to manage eye dryness and maintain hydration to alleviate systemic dryness. The patient is encouraged to maintain adequate hydration to prevent recurrence of nephrolithiasis, and any new episodes of flank pain should be promptly evaluated. For arthritis, lifestyle modifications including regular exercise and weight management will be emphasized to manage joint pain. Preventative care measures will include scheduling a mammogram this year and continuing regular screenings as per guidelines. Blood work will be conducted to evaluate thyroid function and other parameters, with a focus on understanding the cause of night sweats and ensuring overall health maintenance. Patient was informed and verbally consented to the use of an ambient scribe for clinic note documentation during this visit. Discussion Notes During the visit, we discussed the management of GERD with continued use of famotidine and dietary adjustments to alleviate symptoms. We also reviewed the importance of hydration in managing Sj?gren's Syndrome and preventing nephrolithiasis. The patient was advised on lifestyle modifications to manage arthritis symptoms and the importance of regular exercise. Preventative care measures were emphasized, including scheduling a mammogram and conducting blood work to monitor thyroid function and investigate night sweats. Patient Instructions - Continue taking famotidine as prescribed for GERD. - Maintain hydration to manage Sj?gren's Syndrome and prevent kidney stones. - Engage in regular exercise and maintain a healthy diet to manage arthritis symptoms. - Schedule a mammogram this year and follow up with regular screenings. - Complete blood work as discussed to monitor thyroid function and investigate night sweats. Orders: Orders Comprehensive Met. Panel Today K21.9 - Gastro-esophageal reflux disease without esophagitis Thyroid Stimulating Hormone Today K21.9 - Gastro-esophageal reflux disease without esophagitis Vitamin B12 and Folate Today K21.9 - Gastro-esophageal reflux disease without esophagitis Erythrocyte Sedimentation Rate Today K21.9 - Gastro-esophageal reflux disease without esophagitis Magnesium Today K21.9 - Gastro-esophageal reflux disease without esophagitis Complete Blood Count Auto Diff Today K21.9 - Gastro-esophageal reflux disease without esophagitis Free T4 (Free Thyroxine) Today K21.9 - Gastro-esophageal reflux disease without esophagitis Lipid Panel Today E78.00 - Pure hypercholesterolemia, unspecified, K21.9 - Gastro-esophageal reflux disease without esophagitis UA CC w/rflx Micro + Cult Today K21.9 - Gastro-esophageal reflux disease without esophagitis, R30.0 - Dysuria Vitamin D 25-OH Total Today K21.9 - Gastro-esophageal reflux disease without esophagitis Hemoglobin A1c Today K21.9 - Gastro-esophageal reflux disease without esophagitis
--- OUTSIDE RECORDS SUMMARY | 2025-02-20 12:48 | XMS_ITS | Patient Health Record ---
Author Organization [facility] Address [address] [address] Care Team Providers Care Chronic Disease Epidemiologist Name Role Phone geoff flower Primary Care Provider KALEE Harper Unavailable [phone] Allergies Allergen (clinical drug ingredient) Drug/Non Drug Allergy documented on EMR Reaction Allergy Type Onset Date Status aspirin Aspirin Unknown Drug Allergy Active Substance with sulfonamide structure and antibacterial mechanism of action (substance) Sulfa Antibiotics Unknown Drug Allergy Active Reason For Referral No Information Encounters Encounter Location Date Provider Diagnosis [facility] [address] [address] 03/13/2024 KALEE AYON Plan Of Treatment No Information Insurance Providers Payer Name Payer Address Payer Phone Subscriber Number Group Number Insured Name Patient Relationship to Insured Coverage Start Date Coverage End Date [employer] [address] [address] [place] [phone] [id number] Damaris Lockett Self - patient is the insured Medical (General) History Medical History History ICD Code pineal gland cyst hemorrhoids bile salt-induced syndrome irritable bowel syndrome sjogrens syndrome GERD ( gastroesophageal reflux disease) Hyperbilirubinema Vitamin D deficiency Greg's disease Surgical History Surgery Date(Month/Year) fundoplication elbow surgery tonsillectomy priya fundoplication rotator cuff surgery cholecystectomy colonoscopy right lateral epicondylitis
--- OUTSIDE RECORDS SUMMARY | 2025-02-20 12:48 | XMS_ITS | Clinical Summary ---
Author Organization [facility] it Address [address] [place] [address] Care Team Providers Care Ip Attorney Name Role Phone Ruslan Palmer MD Primary Care Provider [phone] Surgical History Surgery Date Site/Laterality Comments TONSILLECTOMY PROCEDURE: HISTORICAL TONSILLECTOMY; COMMENT: childhood ROTATOR CUFF REPAIR Right PROCEDURE: HISTORICAL ROTATOR CUFF REPAIR CHOLECYSTECTOMY PROCEDURE: HISTORICAL CHOLECYSTECTOMY OTHER SURGICAL HISTORY PROCEDURE: RI UNLISTED LAPAROSCOPY PROCEDURE STOMACH; COMMENT: laproscopic Del fundoplication OTHER SURGICAL HISTORY PROCEDURE: HISTORY OTHER; COMMENT: hernia repair COLONOSCOPY 10/16/2020 PROCEDURE: HISTORICAL COLONOSCOPY; COMMENT: medium external hemorrhoids, normal colonoscopy w/ random biopsies ESOPHAGOGASTRODUODENOSCOPY 10/16/2020 PROCEDURE: RI ESOPHAGOGASTRODUODENOSCOPY TRANSORAL DIAGNOSTIC; COMMENT: barretts esophagus / gastritis Medical History Medical History Date Comments 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:Tube rculin test reaction; COMMENT: treated with antibiotics for 6 months Herpes zoster with other spe cified complications(053.79) DX:Herpes zoster with other specified complications(053.79); COMMENT: hx X2 on her back Sjogren's syndrome (CMS/HCC V24) DX:Sjogren's syndrome (HCC) History of acute pancreatitis DX :History of acute pancreatitis Fibromyalgia DX:Fibromyalgia History of Helicobacter pylo ri infection DX:History of Helicobacter p ylori infection Sciatic nerve pain, left DX:Scia tic nerve pain, left Anxiety 01/21/2021 DX:Anxiety Cornejo's esophagus 01/21/2021 DX:Cornejo's esophagus Depression 01/21/2021 DX:Depression External hemorrhoids 01/21/2021 DX:External hemorrhoids GERD (gastroesophageal reflux disease) 7 DX:GERD (gastroesophageal reflux disease) History of colonic polyps 01/21/2021 DX:His tory of colonic polyps Hyperthyroidism 01/21/2021 DX:Hyperthyroidi sm Family History Medical History Relation Name Comments Prostate cancer Father Arthritis Mother Glaucoma Mother Uterine cancer Sister Relation Name Status Comments Brother Alive Father Alive Mother Alive Sister Alive Social History Tobacco Use Types Packs/Day Years Used Date Smoking Tobacco: Former Smokeless Tobacco: Never Alcohol Use Standard Drinks/Week Comments Not Currently 0 (1 standard drink = 0.6 oz pur e alcohol) Comments Unknown Sex and Gender Information Value Date Recorded Sex Assigned at Not on file Legal Sex Female 10:17 PM EST Gender Identity Not on file Sexual Orientation Not on file Obstetrics History Plan of Treatment Health Maintenance Due Date Last Done Comments DTaP,Tdap,and Td Vaccines (1 - Tdap) 1977 Pneumococcal Vaccine: 50+ Ye ars (1 of 1 - PCV) 2008 Zoster Vaccines (1 of 2) 2008 Colorectal Cancer Screening: Colonoscopy 07/04/2022 Hepatitis C Screening 07/04/2022 Social Influencers of Health Screening 07/04/2022 Falls Risk Assessment 12/06/2023 COVID-19 Vaccine (1 - 2023-2 5 season) 2024 Depression Screening 08/02/2024 Influenza Vaccine (#1) 2025 Breast Cancer Screening 01/19/2026 01/20/2024 RSV Immunization Adult Patie nts (1 - 1-dose 75+ series) 2033 Osteoporosis Screening (Bone Density Screening) 02/06/2034 02/07/2024 HIB Vaccines Aged Out No longer eligi ble based on patient's age to complete this topic HPV Vaccines Aged Out No longer eligi ble based on patient's age to complete this topic Hepatitis A Vaccines Aged Out No long er eligible based on patient's age to complete this topic Hepatitis B Vaccines Aged Out No long er eligible based on patient's age to complete this topic IPV Vaccines Aged Out No longer eligi ble based on patient's age to complete this topic MMR Vaccines Aged Out No longer eligi ble based on patient's age to complete this topic Meningococcal ACWY Vaccine Aged Out N o longer eligible based on patient's age to complete this topic Meningococcal B Vaccine Aged Out No l onger eligible based on patient's age to complete this topic RSV Immunization Patients Un delroy 20 months Aged Out No longer eligible b ased on patient's age to complete this topic Varicella Vaccines Aged Out No longer eligible based on patient's age to complete this topic Procedures Procedure Name Priority Date/Time Associated Diagnosis Comments [facility] DEXA AXIAL SKELETON Routine 02/07/2024 8:35 AM EDT Other specified disorders of bone density and structure, multiple sites [facility] SCREENING DIGITAL Routine 01/20/2024 7:52 AM EDT Encounter for screening mammogram for malignant neoplasm of breast from Last 3 Months or Most Recently Relevant to Health Maintenance Results * [facility] DEXA AXIAL SKELETON (02/07/2024 8:35 AM EDT) Anatomical Region Laterality Modality Mammography 02/07/2024 7:41 AM EDT Narrative 02/07/2024 8:35 AM EDT [facility] Diagnostic Imaging Department [address] [place] [address] Patient: TANVIR SANTIAGO Adarsh /Age/Sex: 1960 - 63 - F Unit#: [id number] Location/Status: [facility] Mnemonic[facility]ing [facility] Ordering Physician: RUSLAN PALMER MD [facility] Dexa Axial Skeleton - 02/07/24828 Report Status:Signed HISTORY: The patient is a 63-year-old postmenopausal female with clinical concern for metabolic bone disease. FINDINGS: Dual energy x-ray absorptiometry of the lumbar spine and femurs is performed. The mean bone mineral density at L1-L4 is 1.015 gm/cm2 which is 86% of that of young normals and 110% of that of age matched controls. This yields a T-score of -1.4 and a Z-score of 0.8 which is diagnostic of osteopenia. The mean bone mineral density of the femurs bilaterally is 0.730 gm/cm2 which is 72% of that of young normals and 90% of that of age matched controls. This yields a T-score of -2.2 and a Z-score of -0.6 which is diagnostic of osteopenia. The T-score of the right femoral neck is -2.3 and that of the left femoral neck is -2.4 which is diagnostic of osteopenia. IMPRESSION: 1. Osteopenia. 2. FRAX analysis yields a 10-year probability of major osteoporotic fracture of 6.3% and a 10-year probability of hip fracture of 1.3%. Code 62827 Dictating Physician: TALI POOL MD Electronically Signed by: TALI POOL MD Dic Date/Time: 02/07/24833 Sign date/Time: 02/07/24834 Procedure Note Tali Pool MD - 05/17/2024 [facility] Diagnostic Imaging Department [address] [place] [address] Patient: JACKTANVIR Adarsh Castanon./Age/Sex: 1960 - 63 - F Unit#: [id number] [facility]Status[facility] Ordering Physician: RUSLAN PALMER MD [facility] Dexa Axial Skeleton - 02/07/24828 Report Status:Signed HISTORY: The patient is a 63-year-old postmenopausal female withclinical concern for metabolic bone disease. FINDINGS: Dual energy x-ray absorptiometry of the lumbar spine and femursis performed. The mean bone mineral density at L1-L4 is 1.015 gm/cm2 which is86% of that of young normals and 110% of that of age matched controls. Thisyields a T-score of -1.4 and a Z-score of 0.8 which is diagnostic of osteopenia. The mean bone mineral density of the femurs bilaterally is 0.730 gm/kp8dbevh is 72% of that of young normals and 90% of that of age matched controls.This yields a T-score of -2.2 and a Z-score of -0.6 which is diagnostic of osteopenia. The T-score of the right femoral neck is -2.3 and that of theleft femoral neck is -2.4 which is diagnostic of osteopenia. IMPRESSION: 1. Osteopenia. 2. FRAX analysis yields a 10-year probability of major osteoporoticfracture of 6.3% and a 10-year probability of hip fracture of 1.3%. Code 91763 Dictating Physician: TALI POOL MD Electronically Signed by: TALI POOL MD Dic Date/Time: 02/07/24833 Sign date/Time: 02/07/24834 Ruslan Palmer MD [facility] [place] BI PROCEDURES Final Result * [facility] SCREENING DIGITAL (01/20/2024 7:52 AM EDT) Anatomical Region Laterality Modality Mammography 01/19/2024 9:50 AM EDT Narrative 01/20/2024 7:52 AM EDT [facility] Diagnostic Imaging Department [address] [place] [id number] Patient: TANVIR SANTIAGO /Age/Sex: 1960 - 63 - F Unit#: [id number] Location/Status: SPDIMAM/REG CLI Mnemonic/Ordering Site: [facility] Ordering Physician: RUSLAN PALMER MD [facility] Screening Digital - 01/19/24 - 1025 Report Status:Signed EXAM: [facility] Screening Digital EXAM DATE AND TIME: 01/19/2024 10:26 AM HISTORY: Annual screening COMPARISON: 01/06/2023, 12/23/2021, 08/22/2020, 12/13/2018, 06/02/2017, 03/19/2016 TECHNIQUE: Bilateral digital breast tomosynthesis was performed in the CC and MLO projections. Computer aided detection with [employer] 3D 3.1 was employed. TISSUE DENSITY: c. The breasts are heterogeneously dense, which may obscure small masses. FINDINGS: No suspicious masses, grouped microcalcifications, or areas of architectural distortion are seen. The skin and vascularity are unremarkable. IMPRESSION: Stable mammographic appearance of the breasts. No evidence of malignancy is seen. A negative mammogram in the presence of a clinically suspicious palpable abnormality does not preclude the possibility of malignancy or alter the indica tions for biopsy. BI-RADS: Category 1: Negative RECOMMENDATION(S): 1: Routine screening mammogram BILATERAL in 1 year. Dictating Physician: BENNETT KILGORE MD Electronically Signed by: BENNETT KILGORE MD Dic Date/Time: 01/20/24 0739 Sign date/Time: 01/20/24 0752 Procedure Note Bennett Kilgore MD - 05/17/2024 [facility] Diagnostic Imaging Department [address] [place] [id number] Patient: TANVIR SANTIAGO /Age/Sex: 1960 - 63 - F Unit#: [id number] Location/Status: SPDIMAM/REG CLI Mnemonic/Ordering Site: [facility] Ordering Physician: RUSLAN PALMER MD [facility] Screening Digital - 01/19/24 - 1025 Report Status:Signed EXAM: [facility] Screening Digital EXAM DATE AND TIME: 01/19/2024 10:26 AM HISTORY: Annual screening COMPARISON: 01/06/2023, 12/23/2021, 08/22/2020, 12/13/2018, 06/02/2017, 03/19/2016 TECHNIQUE: Bilateral digital breast tomosynthesis was performed in the CCand MLO projections. Computer aided detection with [employer] 3D 3.1was employed. TISSUE DENSITY: c. The breasts are heterogeneously dense, which mayobscure small masses. FINDINGS: No suspicious masses, grouped microcalcifications, or areas ofarchitectural distortion are seen. The skin and vascularity are unremarkable. IMPRESSION: Stable mammographic appearance of the breasts. No evidence of malignancyis seen. A negative mammogram in the presence of a clinically suspicious palpable abnormality does not preclude the possibility of malignancy or alter theindica tions for biopsy. BI-RADS: Category 1: Negative RECOMMENDATION(S): 1: Routine screening mammogram BILATERAL in 1 year. Dictating Physician: BENNETT KILGORE MD Electronically Signed by: BENNETT KILGORE MD Dic Date/Time: 01/20/24 0739 Sign date/Time: 01/20/24 0752 Ruslan Palmer MD IMG BI PROCEDURES Final Result from Last 3 Months or Most Recently Relevant to Health Maintenance Care Teams Ip Attorney Relationship Specialty Start Date End Date Ruslan Palmer MD [address] [place] [address] [address] [facility] [place] [address] PCP - General Internal Medicine 03/06/21
--- OUTSIDE RECORDS SUMMARY | 2025-02-20 12:48 | XMS_ITS | Data Portability ---
Author Organization [place] - [employer] [facility] [employer], [employer], [facility] Address [address] [place] [address] Care Team Providers Care Administrative Professional Name Role Phone DONALD DAVE Primary Care Provider DONALD DAVE Referring Provider AMPARO DURAN [employer] SNEHAL LENNON Graphic Arts Instructor Assessment No assessment recorded. Plan of Treatment Reminders Order Date Submit Date Provider Last Modified By Organization Details Last Modified Time Details Appointments None recorded. Lab lipid panel, serum 2023 024 [facility], [address] [place], [address], 4 16:30:09 TSH, serum or plasma 2023 024 [facility], [address] [place], [address], 4 16:44:43 venipunctu re 2023 024 [facility], [address] [place], [address], 4 10:39:10 vitamin B12, serum 2023 024 [facility], [address] [place], [address], 4 16:44:36 magnesium, serum or plasma 2023 [facility], [address], [place], [address], 4 16:30:12 uric acid, serum or plasma 2023 [facility], [address], [place], [address], 4 16:30:19 vitamin D, 25-hydroxy , total, serum 2023 [facility], [address], [place], [address], 4 16:44:46 C-reactive protein, quantitati ve, serum or plasma 2023 [facility], [address], [place], [address], 4 17:30:24 CBC 2023 [facility], [address], [place], [address], 4 16:13:42 erythrocyt e sedimentat ion rate by westergren method 2023 [facility], [address], [place], [address], 4 03:24:46 CMP, serum or plasma 2023 [facility], [address], [place], [address], 4 16:30:06 TSH, serum or plasma 2023 024 [facility], [address], [place], [address], 4 05:01:19 T3, free, serum or plasma 2023 024 [facility], [address], [place], [address], 4 17:05:41 T4, free, serum 2023 024 [facility], [address], [place], [address], 4 17:05:39 lipid panel, serum 2023 024 [facility], [address], [place], [address], 4 19:11:06 TSH, serum or plasma 2023 024 [facility], [address], [place], [address], 4 17:09:44 CMP, serum or plasma 2023 024 [facility], [address], [place], [address], 4 19:11:03 CBC 2023 024 [facility], [address], [place], [address], 4 16:07:24 C-reactive protein, quantitati ve, serum or plasma 2023 024 [facility], [address], [place], [address], 4 17:16:15 erythrocyt e sedimentat ion rate by westergren method 2023 [facility], [address], [place], [address], 4 17:07:40 urinalysis , complete 2023 024 [facility], [address], [place], [address], 4 16:10:09 venipunctu re 2023 [facility], [address], [place], [address], 4 09:05:19 rapid influenza virus A + B and SARS CoV + SARS CoV 2 Ag panel, IA, upper respirator y specimen 2023 In-Office Order, Internal Use Only DO Not Attach Compendium DO Not Attach Compendium, Do Not Delete/merge, [id number] 4 17:30:56 Referral physical therapist referral 2023 [facility], [facility]on[address], [place], [address], 4 04:16:12 Procedures None recorded. Surgeries None recorded. Imaging MAMMO, screening, tomosynthe sis, bilateral 2023 [facility], [facility], All Locations, [place], [address], 4 05:01:30 bone density - 57774 Bone Density 2023 024 [facility], [facility], All Locations, [place], [address], 4 05:01:26 Medication Orders doxycyclin e hyclate 100 mg capsule 2023 [id number], [address] [place], [address], 4 10:12:20 Paxlovid 300 mg (150 mg x 2)-100 mg tablets in a dose pack 2023 [id number], [address] [place], [address], 4 08:36:47 Zithromax Z-Андрей 250 mg tablet 2023 [id number], [address] [place], [address], 4 08:36:53 Patient TargetsNo targets recorded. Patient Instructions Encounter Date Encounter Id Patient Instructions Last Modified By Organization Details Last Modified Time 11/19/2022 [id number] positive off and on left eye lid twitching, recomeded that patient warm compresses . wearing sunglasses , reduce caffeine , recommed otc eye drops for twitching, if symptoms persist will need follow up with opthalmology [email or web address] Not available 11/19/2022 12:54:16 08/12/2023 [id number] rapid covid swab test positive Counseling for COVID-19 provided today: --Review the signs and symptoms of COVID-19 --Discussed need for immediate isolation, even before results of the test are available --Advised patients to inform their immediate household/contact s that they may wish to be tested and quarantine as well. Review location and people they have been in contact with in the past 2 weeks --Inform patients that, if positive, they will likely be contacted by a public health worker and asked to provide a list of the people they have been with for contact tracing, encourage them to answer the call --Discussed services that might help the patient isolate and quarantine at home [email or web address] Not available 08/12/2023 17:30:51 11/26/2023 [id number] heart-healthy diet: care instructions Not available 11/26/2023 11:37:01 sore throat: car e instructions [email or web address] Not available 11/26/2023 08:42:56 12/03/2023 [id number] irritable bowel syndrome: care instructions [email or web address] Not available 12/03/2023 10:30:05 06/13/2024 [id number] well visit, over 65: care instructions [email or web address] Not available 06/13/2024 10:28:15 Value Based Patient Guide Not available 06/13/2024 09:53:00 advance directiv e education Not available 06/13/2024 10:28:15 SCREENING SCHEDULE DEPRESSION SCREENING: A Depression Screening Assessment was conducted, with staff-assisted depression care supports during this encounter and all actions of this assessment and time elements of up to 15 minutes were met. COLORECTAL CANCER SCREENING: Colonoscopy, average risk, every 10 years unless advised differently by provider CERVICAL CANCER SCREENING - PAP (female only): no longer recommended due to hysterectomy, age, and/or low risk unless advised differently by provider BREAST CANCER SCREENING: Mammogram: recommended annually unless advised differently by provider OSTEOPOROSIS SCREENING - Bone density (female only): At age 65 and every 2 years or as advised by your provider CARDIOVASCULAR RISK SCREENING - AAA screening (male only): not recommended VACCINE RECOMMENDATIONS: (except if you have experienced severe allergic reaction [e.g. anaphylaxis] after a previous dose/a component of these vaccines OR otherwise advised by your provider not to receive it) Covid vaccine: booster up-to-date Influenza vaccine: patient refuses vaccine Pneumococcal Vaccine: pt refuses vaccine Shingles vaccine - Shingrix: vaccine recommended per guidelines Tetanus vaccine: patient refuses vaccine [email or web address] Not available 06/13/2024 10:32:17 Reason for Referral Physical Therapist Referral for Cervical radiculopathy Referring Physician: Donald Dave, Internal Medicine, Encounter Date: 06/13/2024 Results Created Date Observation Date Name Description Value Unit Range Abnormal Flag Note LastModifiedBy Organization Detail LastModifiedTime 08/12/19 24 08/12/2023 rapid influ aria virus A + B and SARS CoV + SARS CoV 2 Ag panel , IA, upper respi rator y speci men INFLUENZA TYPE A NEGATI VE Not Available In-Office Order Internal Use Only DO Not Attach Compendium DO Not Attach Compendium, Do Not Delete/merge, 08/12/2023 16:25:37 08/12/19 24 08/12/2023 rapid influ aria virus A + B and SARS CoV + SARS CoV 2 Ag panel , IA, upper respi rator y speci men INFLUENZA TYPE B NEGATI VE Not Available In-Office Order Internal Use Only DO Not Attach Compendium DO Not Attach Compendium, Do Not Delete/merge, 08/12/2023 16:25:37 08/12/19 24 08/12/2023 rapid influ aria virus A + B and SARS CoV + SARS CoV 2 Ag panel , IA, upper respi rator y speci men Rapid SARS COV, ANTIGEN POSITI VE Not Available In-Office Order Internal Use Only DO Not Attach Compendium DO Not Attach Compendium, Do Not Delete/merge, 08/12/2023 16:25:37 08/12/19 24 08/12/2023 rapid influ aria virus A + B and SARS CoV + SARS CoV 2 Ag panel , IA, upper respi rator y speci men INTERNAL CONTROL VALID Not Available In-Off ice Order Internal Use Only DO Not Attach Compendium DO Not Attach Compendium, Do Not Delete/merge, 08/12/2023 16:25:37 08/12/19 24 08/12/2023 rapid influ aria virus A + B and SARS CoV + SARS CoV 2 Ag panel , IA, upper respi rator y speci men Is this patient's first COVID test? No Not Available In-Off ice Order Internal Use Only DO Not Attach Compendium DO Not Attach Compendium, Do Not Delete/merge, 08/12/2023 16:25:37 08/12/19 24 08/12/2023 rapid influ aria virus A + B and SARS CoV + SARS CoV 2 Ag panel , [place], upper respi rator y speci men Is patient employed in healthcare? No Not Available In-O ffice Order Internal Use Only DO Not Attach Compendium DO Not Attach Compendium, Do Not Delete/merge, 08/12/2023 16:25:37 08/12/19 24 08/12/2023 rapid influ aria virus A + B and SARS CoV + SARS CoV 2 Ag panel , IA, upper respi rator y speci men Is patient symptomatic of COVID-19? Yes Not Available In- Office Order Internal Use Only DO Not Attach Compendium DO Not Attach Compendium, Do Not Delete/merge, 08/12/2023 16:25:37 08/12/19 24 08/12/2023 rapid influ aria virus A + B and SARS CoV + SARS CoV 2 Ag panel , IA, upper respi rator y speci men If yes, date of onset (mm/dd/yyyy) ? Not Available In-Off ice Order Internal Use Only DO Not Attach Compendium DO Not Attach Compendium, Do Not Delete/merge, 08/12/2023 16:25:37 08/12/19 24 08/12/2023 rapid influ aria virus A + B and SARS CoV + SARS CoV 2 Ag panel , IA, upper respi rator y speci men If female, is patient ? Not Available In-Off ice Order Internal Use Only DO Not Attach Compendium DO Not Attach Compendium, Do Not Delete/merge, 08/12/2023 16:25:37 08/12/19 24 08/12/2023 rapid influ aria virus A + B and SARS CoV + SARS CoV 2 Ag panel , IA, upper respi rator y speci men Has patient been hospitalized due to COVID? No Not Available In-Off ice Order Internal Use Only DO Not Attach Compendium DO Not Attach Compendium, Do Not Delete/merge, 08/12/2023 16:25:37 08/12/19 24 08/12/2023 rapid influ aria virus A + B and SARS CoV + SARS CoV 2 Ag panel , IA, upper respi rator y speci men Has patient been in ICU due to COVID? No Not Available In-Off ice Order Internal Use Only DO Not Attach Compendium DO Not Attach Compendium, Do Not Delete/merge, 08/12/2023 16:25:37 08/12/19 24 08/12/2023 rapid influ aria virus A + B and SARS CoV + SARS CoV 2 Ag panel , [place], upper respi rator y speci men Is patient resident in congregate care setting? No Not Available In-Off ice Order Internal Use Only DO Not Attach Compendium DO Not Attach Compendium, Do Not Delete/merge, [id number] 08/12/2023 16:25:37 11/26/19 24 11/26/2023 CBC W/ AUTOD IFF, COMPL ETE BLOOD COUNT WBC 4.6 K/uL 3.6 - 10.0 Not Available [facility] [address], [place], [address], 11/26/2023 15:58:00 11/26/19 24 11/26/2023 CBC W/ AUTOD IFF, COMPL ETE BLOOD COUNT RBC 4.1 M/uL 3.9 - 5.0 Not Available [facility] [address] [facility] [address], [place], [address], 11/26/2023 15:58:00 11/26/19 24 11/26/2023 CBC W/ AUTOD IFF, COMPL ETE BLOOD COUNT hemoglobin 13.0 g/dL 12.0 - 15.0 Not Available [facility] [address] [facility] [facility] [address], [place], [address], 11/26/2023 15:58:00 11/26/19 24 11/26/2023 CBC W/ AUTOD IFF, COMPL ETE BLOOD COUNT hematocrit 39.0 % 35.0 - 45.0 Not Available [facility] [address], [place], [address], 11/26/2023 15:58:00 11/26/19 24 11/26/2023 CBC W/ AUTOD IFF, COMPL ETE BLOOD COUNT MCV 94.4 fL 80.0 - 99.0 Not Available [facility] [address] [facility] [facility] [address], [place], [address], 11/26/2023 15:58:00 11/26/19 24 11/26/2023 CBC W/ AUTOD IFF, COMPL ETE BLOOD COUNT MCH 31.5 pg 27.0 - 33.0 Not Available [facility], [place], [address], 11/26/2023 15:58:00 11/26/19 24 11/26/2023 CBC W/ AUTOD IFF, COMPL ETE BLOOD COUNT MCHC 33.4 g/dL 32.0 - 36.0 Not Available [facility], [place], [address], 11/26/2023 15:58:00 11/26/19 24 11/26/2023 CBC W/ AUTOD IFF, COMPL ETE BLOOD COUNT RDW 13.4 % 11.0 - 15.0 Not Available [facility] [address] [place] [address] [address], [place], [address], 11/26/2023 15:58:00 11/26/19 24 11/26/2023 CBC W/ AUTOD IFF, COMPL ETE BLOOD COUNT nucleated RBC 0 % 0 - 2 Not Available [facility] [address] [place] [address] [address], [place], [address], 11/26/2023 15:58:00 11/26/19 24 11/26/2023 CBC W/ AUTOD IFF, COMPL ETE BLOOD COUNT platelet 237 K/uL 140 - 440 Not Available [facility], [place], [address], 11/26/2023 15:58:00 11/26/19 24 11/26/2023 CBC W/ AUTOD IFF, COMPL ETE BLOOD COUNT MPV 10.6 fL 7.4 - 10.4 high Not Available [facility] [address] [place] [address] [address], [place], [address], 11/26/2023 15:58:00 11/26/19 24 11/26/2023 CBC W/ AUTOD IFF, COMPL ETE BLOOD COUNT neutrophil, percentage 47.3 % Not Available [facility] [facility] [address], [place], [address], 11/26/2023 15:58:00 11/26/19 24 11/26/2023 CBC W/ AUTOD IFF, COMPL ETE BLOOD COUNT lymphocyte, percentage 41.0 % Not Available [facility] [address], [place], [address], 11/26/2023 15:58:00 11/26/19 24 11/26/2023 CBC W/ AUTOD IFF, COMPL ETE BLOOD COUNT monocyte, percentage 8.8 % Not Available [facility] [address] [place], [place] [address], [place], [address], 11/26/2023 15:58:00 11/26/19 24 11/26/2023 CBC W/ AUTOD IFF, COMPL ETE BLOOD COUNT eosinophil, percentage 1.9 % Not Available [facility] [address] [place], [place] [address], [place], [address], 11/26/2023 15:58:00 11/26/19 24 11/26/2023 CBC W/ AUTOD IFF, COMPL ETE BLOOD COUNT basophil, percentage 1.0 % Not Available [facility] [address], [place], [address], 11/26/2023 15:58:00 11/26/19 24 11/26/2023 CBC W/ AUTOD IFF, COMPL ETE BLOOD COUNT neutrophil, absolute 2.2 K/uL 1.5 - 7.5 Not Available [facility] [address] [place], [place] [address], [place], [address], 11/26/2023 15:58:00 11/26/19 24 11/26/2023 CBC W/ AUTOD IFF, COMPL ETE BLOOD COUNT lymphocyte, absolute 1.9 K/uL 0.8 - 4.0 Not Available [facility] [address] [place] [address] [address], [place], [address], 11/26/2023 15:58:00 11/26/19 24 11/26/2023 CBC W/ AUTOD IFF, COMPL ETE BLOOD COUNT monocyte, absolute 0.4 K/uL 0.1 - 1.0 Not Available [facility] [address] [place] [address] [address] [place], [address], 11/26/2023 15:58:00 11/26/19 24 11/26/2023 CBC W/ AUTOD IFF, COMPL ETE BLOOD COUNT eosinophil, absolute 0.1 K/uL 0.1 - 1.0 Not Available [facility] [address] [place] [address] [address], [place], [address], 11/26/2023 15:58:00 11/26/19 24 11/26/2023 CBC W/ AUTOD IFF, COMPL ETE BLOOD COUNT basophil, absolute 0.0 K/uL 0.0 - 0.2 Not Available [facility] [address] [place] [address] [address] [place], [address], 11/26/2023 15:58:00 11/26/19 24 11/26/2023 T4, FREE free T4 1.040 NG/dL 0.930 - 1.770 Not Available [facility] [address] [place] [address] [address] [place], [address], 11/26/2023 17:05:39 11/26/19 24 11/26/2023 FREE T3 free T3 3.03 pg/mL 2.00 - 4.40 Not Available [facility] [address] [place] [address] [place], [address], 11/26/2023 17:05:41 11/26/19 24 11/26/2023 SED RATE, WESTE RGREN sed rate, westergren 11 mm/HR 0 - 30 Not Available [facility] [address] [facility] [address], [place], [address], 11/26/2023 17:07:40 11/26/19 24 11/26/2023 TSH W/REF RODRI TO FT4 TSH w/reflex FT4 7.0000 uIU/m L 0.2700 - 4.2000 high Not Available [facility] [address] [facility] [address] [facility], [place], [address], 11/26/2023 17:09:44 11/26/19 24 11/26/2023 CMP, COMPR EHENS DAYANARA METAB OLIC PANEL glucose 94 mg/dL 70 - 100 Not Available [facility] [address] [facility] [address], [place], [address], 11/26/2023 19:11:03 11/26/19 24 11/26/2023 CMP, COMPR EHENS DAYANARA METAB OLIC PANEL BUN 15 mg/dL 7 - 25 Not Available [facility] [facility] [address] [place], [address], 11/26/2023 19:11:03 11/26/19 24 11/26/2023 CMP, COMPR EHENS DAYANARA METAB OLIC PANEL creatinine 0.6 mg/dL 0.6 - 1.3 Not Available [facility] [address] [facility] [address] [place], [address], 11/26/2023 19:11:03 11/26/19 24 11/26/2023 CMP, COMPR EHENS DAYANARA METAB OLIC PANEL BUN/creatini ne ratio 24 calc 10 - 25 Not Available [facility] [address] [place], [address], 11/26/2023 19:11:03 11/26/19 24 11/26/2023 CMP, COMPR EHENS DAYANARA METAB OLIC PANEL GFR 99 mL/mi n/1.7 3m^2 >60 GFR < 60 mL/mi n for 3 or more month s may be indic ative of Kidne y Disea se. The GFR is based on the CKD-E PI 2020 equat ion. To calcu late the new GFR from a previ ous Creat inine resul t go to: https ://ww w.kid sinan.o rg/pr ofess ional s/kdo qi/gf r&5Fc alcul ator. Not Available [facility] [address], [place], [address], 11/26/2023 19:11:03 11/26/19 24 11/26/2023 CMP, COMPR EHENS DAYANARA METAB OLIC PANEL sodium 145 mmol/ L 135 - 145 Not Available [facility] [address], [place], [address], 11/26/2023 19:11:03 11/26/19 24 11/26/2023 CMP, COMPR EHENS DAYANARA METAB OLIC PANEL potassium 4.4 mmol/ L 3.5 - 5.5 Not Available [facility] [address], [place], [address], 11/26/2023 19:11:03 11/26/19 24 11/26/2023 CMP, COMPR EHENS DAYANARA METAB OLIC PANEL chloride 107 mmol/ L 100 - 115 Not Available [facility] [address], [place], [address], 11/26/2023 19:11:03 11/26/19 24 11/26/2023 CMP, COMPR EHENS DAYANARA METAB OLIC PANEL CO2 29 mmol/ L 21 - 33 Not Available [facility] [address], [place], [address], 11/26/2023 19:11:03 11/26/19 24 11/26/2023 CMP, COMPR EHENS DAYANARA METAB OLIC PANEL calcium 9.4 mg/dL 8.8 - 10.6 Not Available [facility] [address] [facility] [address], [place], [address], 11/26/2023 19:11:03 11/26/19 24 11/26/2023 CMP, COMPR EHENS DAYANARA METAB OLIC PANEL total protein 7.2 g/dL 6.2 - 8.6 Not Available [facility] [address] [facility] [address], [place], [address], 11/26/2023 19:11:03 11/26/19 24 11/26/2023 CMP, COMPR EHENS DAYANARA METAB OLIC PANEL globulin 3.1 g/dL 1.3 - 4.0 Not Available [facility] [address] [facility] [address], [place], [address], 11/26/2023 19:11:03 11/26/19 24 11/26/2023 CMP, COMPR EHENS DAYANARA METAB OLIC PANEL albumin 4.1 g/dL 3.5 - 5.7 Not Available [facility] [address], [place], [address], 11/26/2023 19:11:03 11/26/19 24 11/26/2023 CMP, COMPR EHENS DAYANARA METAB OLIC PANEL A/G ratio 1.3 calc 1.0 - 2.8 Not Available [facility] [address] [facility] [address], [place], [address], 11/26/2023 19:11:03 11/26/19 24 11/26/2023 CMP, COMPR EHENS DAYANARA METAB OLIC PANEL AST (SGOT) 24 U/L 13 - 39 Not Available [facility] [address] [facility] [address], [place], [address], 11/26/2023 19:11:03 11/26/19 24 11/26/2023 CMP, COMPR EHENS DAYANARA METAB OLIC PANEL ALT (SGPT) 23 U/L 7 - 52 Not Available [facility] [address] [facility] [address], [place], [address], 11/26/2023 19:11:03 11/26/19 24 11/26/2023 CMP, COMPR EHENS DAYANARA METAB OLIC PANEL alkaline phosphatase 90 U/L 20 - 128 Not Available [facility] [address] [facility] [address], [place], [address], 11/26/2023 19:11:03 11/26/19 24 11/26/2023 CMP, COMPR EHENS DAYANARA METAB OLIC PANEL total bilirubin 1.1 mg/dL 0.3 - 1.0 high Not Available [facility] [address] [facility] [address], [place], [address], 11/26/2023 19:11:03 11/26/19 24 11/26/2023 LIPID PANEL W/ CALCU LATED LDL HDL cholestrol 77 mg/dL >50 Not Available [facility] [address] [facility] [address], [place], [address], 11/26/2023 19:11:06 11/26/19 24 11/26/2023 LIPID PANEL W/ CALCU LATED LDL cholesterol 230 mg/dL <200 high Expec martha resul ts for Adult s: Total Sejal stero l: Risk class ifica tion < 200 mg/dL Yolanda able 200-2 39 mg/dL Borde rline high >240 mg/dL High Not Available [facility] [address] [facility] [address], [place], [address], 11/26/2023 19:11:06 11/26/19 24 11/26/2023 LIPID PANEL W/ CALCU LATED LDL triglyceride 131 mg/dL 30 - 150 Not Available [facility] [address] [facility] [address], [place], [address], 11/26/2023 19:11:06 11/26/19 24 11/26/2023 LIPID PANEL W/ CALCU LATED LDL non-HDL cholesterol 153 mg/dL <130 high Yolanda able < 130 mg/dL Not Available [facility] [address] [facility] [address], [place], [address], 11/26/2023 19:11:06 11/26/19 24 11/26/2023 LIPID PANEL W/ CALCU LATED LDL chol/HDL risk ratio 3 calc < 5.0 Optim al Not Available [facility] [address] [facility] [address], [place], [address], 11/26/2023 19:11:06 11/26/19 24 11/26/2023 LIPID PANEL W/ CALCU LATED LDL LDL calculated 127 mg/dL 0 - 99 high Not Available [facility] [address] [facility] [address], [place], [address], 11/26/2023 19:11:06 11/26/19 24 11/29/2023 CRP, C-SERGEI CTIVE PROTE IN C-reactive protein <3.0 mg/L <8.0 normal Not Available [facility] [address] [facility] [address], [place], [address], 11/29/2023 17:06:09 11/26/19 24 11/26/2023 VENIP UNCTU RE results Compl ete Not Available [facility] [address] [facility] [address], [place], [address], 11/26/2023 08:57:02 06/13/20 24 06/13/2024 CBC W/ AUTOD IFF, COMPL ETE BLOOD COUNT WBC 5.6 K/uL 3.6 - 10.0 Not Available [facility] [address], [place], [address], 06/13/2024 16:13:42 06/13/20 24 06/13/2024 CBC W/ AUTOD IFF, COMPL ETE BLOOD COUNT RBC 4.2 M/uL 3.9 - 5.0 Not Available [facility] [address], [place], [address], 06/13/2024 16:13:42 06/13/20 24 06/13/2024 CBC W/ AUTOD IFF, COMPL ETE BLOOD COUNT hemoglobin 12.9 g/dL 12.0 - 15.0 Not Available [facility], [place], [address], 06/13/2024 16:13:42 06/13/20 24 06/13/2024 CBC W/ AUTOD IFF, COMPL ETE BLOOD COUNT hematocrit 39.3 % 35.0 - 45.0 Not Available [facility] [facility], [place], [address], 06/13/2024 16:13:42 06/13/20 24 06/13/2024 CBC W/ AUTOD IFF, COMPL ETE BLOOD COUNT MCV 93.9 fL 80.0 - 99.0 Not Available [facility] [address], [place], [address], 06/13/2024 16:13:42 06/13/20 24 06/13/2024 CBC W/ AUTOD IFF, COMPL ETE BLOOD COUNT MCH 30.9 pg 27.0 - 33.0 Not Available [facility] [address], [place], [address], 06/13/2024 16:13:42 06/13/20 24 06/13/2024 CBC W/ AUTOD IFF, COMPL ETE BLOOD COUNT MCHC 32.9 g/dL 32.0 - 36.0 Not Available [facility] [address], [place], [address], 06/13/2024 16:13:42 06/13/20 24 06/13/2024 CBC W/ AUTOD IFF, COMPL ETE BLOOD COUNT RDW 13.0 % 11.0 - 15.0 Not Available [facility] [address], [place], [address], 06/13/2024 16:13:42 06/13/20 24 06/13/2024 CBC W/ AUTOD IFF, COMPL ETE BLOOD COUNT nucleated RBC 0 % 0 - 2 Not Available [facility] [address], [place], [address], 06/13/2024 16:13:42 06/13/20 24 06/13/2024 CBC W/ AUTOD IFF, COMPL ETE BLOOD COUNT platelet 239 K/uL 140 - 440 Not Available [facility] [address], [place], [address], 06/13/2024 16:13:42 06/13/20 24 06/13/2024 CBC W/ AUTOD IFF, COMPL ETE BLOOD COUNT MPV 10.4 fL 7.4 - 10.4 Not Available [facility] [address], [place], [address], 06/13/2024 16:13:42 06/13/20 24 06/13/2024 CBC W/ AUTOD IFF, COMPL ETE BLOOD COUNT neutrophil, percentage 48.7 % Not Available [facility] [address], [place], [address], 06/13/2024 16:13:42 06/13/20 24 06/13/2024 CBC W/ AUTOD IFF, COMPL ETE BLOOD COUNT lymphocyte, percentage 37.9 % Not Available [facility], [place], [address], 06/13/2024 16:13:42 06/13/20 24 06/13/2024 CBC W/ AUTOD IFF, COMPL ETE BLOOD COUNT monocyte, percentage 9.4 % Not Available [facility] [address], [place], [address], 06/13/2024 16:13:42 06/13/2006/13/2024 CBC W/ AUTOD IFF, COMPL ETE BLOOD COUNT eosinophil, percentage 3.2 % Not Available [facility] [address] [place], [place] [address], [place], [address], 06/13/2024 16:13:42 06/13/2006/13/2024 CBC W/ AUTOD IFF, COMPL ETE BLOOD COUNT basophil, percentage 0.8 % Not Available [facility] [address] [place], [place] [address], [place], [address], 06/13/2024 16:13:42 06/13/20 24 06/13/2024 CBC W/ AUTOD IFF, COMPL ETE BLOOD COUNT neutrophil, absolute 2.7 K/uL 1.5 - 7.5 Not Available [facility] [address] [place], [place] [address], [place], [address], 06/13/2024 16:13:42 06/13/20 24 06/13/2024 CBC W/ AUTOD IFF, COMPL ETE BLOOD COUNT lymphocyte, absolute 2.1 K/uL 0.8 - 4.0 Not Available [facility] [address] [place], [place] [address], [place], [address], 06/13/2024 16:13:42 06/13/20 24 06/13/2024 CBC W/ AUTOD IFF, COMPL ETE BLOOD COUNT monocyte, absolute 0.5 K/uL 0.1 - 1.0 Not Available [facility] [address], [place], [address], 06/13/2024 16:13:42 06/13/20 24 06/13/2024 CBC W/ AUTOD IFF, COMPL ETE BLOOD COUNT eosinophil, absolute 0.2 K/uL 0.1 - 1.0 Not Available [facility] [address], [place], [address], 06/13/2024 16:13:42 06/13/20 24 06/13/2024 CBC W/ AUTOD IFF, COMPL ETE BLOOD COUNT basophil, absolute 0.0 K/uL 0.0 - 0.2 Not Available [facility] [address], [place], [address], 06/13/2024 16:13:42 06/13/20 24 06/13/2024 CMP, COMPR EHENS DAYANARA METAB OLIC PANEL glucose 84 mg/dL 70 - 100 Not Available [facility] [address] [facility] [address], [place], [address], 06/13/2024 16:30:06 06/13/20 24 06/13/2024 CMP, COMPR EHENS DAYANARA METAB OLIC PANEL BUN 15 mg/dL 7 - 25 Not Available [facility] [address], [place], [address], 06/13/2024 16:30:06 06/13/20 24 06/13/2024 CMP, COMPR EHENS DAYANARA METAB OLIC PANEL creatinine 0.5 mg/dL 0.6 - 1.3 low Not Available [facility] [address], [place], [address], 06/13/2024 16:30:06 06/13/20 24 06/13/2024 CMP, COMPR EHENS DAYANARA METAB OLIC PANEL BUN/creatini ne ratio 28 calc 10 - 25 high Not Available [facility] [address], [place], [address], 06/13/2024 16:30:06 06/13/20 24 06/13/2024 CMP, COMPR EHENS DAYANARA METAB OLIC PANEL GFR 103 mL/mi n/1.7 3m^2 >60 GFR < 60 mL/mi n for 3 or more month s may be indic ative of Lv Burch se. The GFR is based on the CKD-E PI 2020 equat ion. To calcu late the new GFR from a previ ous Creat inine resul t go to: https ://yony w.goldy menon.o rg/pr ofess ional s/kdo qi/gf r&5Fc alcul ator. Not Available [facility] [address], [place], [address], 06/13/2024 16:30:06 06/13/20 24 06/13/2024 CMP, COMPR EHENS DAYANARA METAB OLIC PANEL sodium 142 mmol/ L 135 - 145 Not Available [facility] [address], [place], [address], 06/13/2024 16:30:06 06/13/20 24 06/13/2024 CMP, COMPR EHENS DAYANARA METAB OLIC PANEL potassium 4.5 mmol/ L 3.5 - 5.5 Not Available [facility] [address], [place], [address], 06/13/2024 16:30:06 06/13/20 24 06/13/2024 CMP, COMPR EHENS DAYANARA METAB OLIC PANEL chloride 103 mmol/ L 100 - 115 Not Available [facility] [address], [place], [address], 06/13/2024 16:30:06 06/13/20 24 06/13/2024 CMP, COMPR EHENS DAYANARA METAB OLIC PANEL CO2 30 mmol/ L 21 - 33 Not Available [facility] [address], [place], [address], 06/13/2024 16:30:06 06/13/20 24 06/13/2024 CMP, COMPR EHENS DAYANARA METAB OLIC PANEL calcium 9.4 mg/dL 8.8 - 10.6 Not Available [facility] [address], [place], [address], 06/13/2024 16:30:06 06/13/20 24 06/13/2024 CMP, COMPR EHENS DAYANARA METAB OLIC PANEL total protein 6.8 g/dL 6.2 - 8.6 Not Available [facility] [address] [facility] [address], [place], [address], 06/13/2024 16:30:06 06/13/20 24 06/13/2024 CMP, COMPR EHENS DAYANARA METAB OLIC PANEL globulin 2.7 g/dL 1.3 - 4.0 Not Available [facility] [address], [place], [address], 06/13/2024 16:30:06 06/13/20 24 06/13/2024 CMP, COMPR EHENS DAYANARA METAB OLIC PANEL albumin 4.1 g/dL 3.5 - 5.7 Not Available [facility] [address], [place], [address], 06/13/2024 16:30:06 06/13/20 24 06/13/2024 CMP, COMPR EHENS DAYANARA METAB OLIC PANEL A/G ratio 1.5 calc 1.0 - 2.8 Not Available [facility] [address], [place], [address], 06/13/2024 16:30:06 06/13/20 24 06/13/2024 CMP, COMPR EHENS DAYANARA METAB OLIC PANEL AST (SGOT) 29 U/L 13 - 39 Not Available [facility] [address], [place], [address], 06/13/2024 16:30:06 06/13/20 24 06/13/2024 CMP, COMPR EHENS DAYANARA METAB OLIC PANEL ALT (SGPT) 31 U/L 7 - 52 Not Available [facility] [address], [place], [address], 06/13/2024 16:30:06 06/13/20 24 06/13/2024 CMP, COMPR EHENS DAYANARA METAB OLIC PANEL alkaline phosphatase 87 U/L 20 - 128 Not Available [facility] [address], [place], [address], 06/13/2024 16:30:06 06/13/20 24 06/13/2024 CMP, COMPR EHENS DAYANARA METAB OLIC PANEL total bilirubin 0.7 mg/dL 0.3 - 1.[address] [facility] [address] [facility] [address] [place], [address], 06/13/2024 16:30:06 06/13/20 24 06/13/2024 LIPID PANEL W/ CALCU LATED LDL HDL cholestrol 69 mg/dL >50 Not Available [facility] [address] [facility] [address], [place], [address], 06/13/2024 16:30:09 06/13/20 24 06/13/2024 LIPID PANEL W/ CALCU LATED LDL cholesterol 190 mg/dL <200 Expec martha resul ts for Adult s: Total Sejal stero l: Risk class ifica tion < 200 mg/dL Yolanda able 200-2 39 mg/dL Borde rline high >240 mg/dL High Not Available [facility] [address] [facility] [address], [place], [address], 06/13/2024 16:30:09 06/13/20 24 06/13/2024 LIPID PANEL W/ CALCU LATED LDL triglyceride 134 mg/dL 30 - 150 Not Available [facility] [address] [facility] [address], [place], [address], 06/13/2024 16:30:09 06/13/20 24 06/13/2024 LIPID PANEL W/ CALCU LATED LDL non-HDL cholesterol 121 mg/dL <130 Yolanda able < 130 mg/dL Not Available [facility] [address] [facility] [address], [place], [address], 06/13/2024 16:30:09 06/13/20 24 06/13/2024 LIPID PANEL W/ CALCU LATED LDL chol/HDL risk ratio 3 calc < 5.0 Optim al Not Available [facility] [address] [facility] [address], [place], [address], 06/13/2024 16:30:09 06/13/20 24 06/13/2024 LIPID PANEL W/ CALCU LATED LDL LDL calculated 94 mg/dL 0 - 99 Not Available [facility] [address] [facility] [address] [place], [address], 06/13/2024 16:30:09 06/13/20 24 06/13/2024 MAGNE SIUM, SERUM magnesium 2.3 mg/dL 1.7 - 2.5 Not Available [facility] [address] [facility] [address], [place], [address], 06/13/2024 16:30:12 06/13/20 24 06/13/2024 URIC ACID uric acid 2.8 mg/dL 2.3 - 6.6 Not Available [facility] [facility] [address], [place], [address], 06/13/2024 16:30:19 06/13/20 24 06/13/2024 URINA LYSIS , COMPL ETE W/ REFLE X TO CULTU RE color YELLOW yellow Not Available [facility] [address] [place], [place] [address], [place], [address], 06/13/2024 16:38:25 06/13/20 24 06/13/2024 URINA LYSIS , COMPL ETE W/ REFLE X TO CULTU RE appearance CLEAR clear, cloudy Not Available [facility] [address] [place], [place] [address], [place], [address], 06/13/2024 16:38:25 06/13/20 24 06/13/2024 URINA LYSIS , COMPL ETE W/ REFLE X TO CULTU RE specific gravity 1.008 1.005- 1.030 Not Available [facility] [address] [place], [place] [address], [place], [address], 06/13/2024 16:38:25 06/13/20 24 06/13/2024 URINA LYSIS , COMPL ETE W/ REFLE X TO CULTU RE pH 7.5 5.0-8. 0 Not Available [facility] [address] [place], [place] [address], [place], [address], 06/13/2024 16:38:25 06/13/20 24 06/13/2024 URINA LYSIS , COMPL ETE W/ REFLE X TO CULTU RE glucose, urine NEGATI VE mg/dL negati ve Not Available [facility] [address] [place], [place] [address], [place], [address], 06/13/2024 16:38:25 06/13/20 24 06/13/2024 URINA LYSIS , COMPL ETE W/ REFLE X TO CULTU RE bilirubin NEGATI VE mg/dL negati ve Not Available [facility] [address] [facility] [address], [place], [address], 06/13/2024 16:38:25 06/13/20 24 06/13/2024 URINA LYSIS , COMPL ETE W/ REFLE X TO CULTU RE ketone NEGATI VE mg/dL negati ve Not Available [facility] [address] [facility] [address] [facility] [address], [place], [address], 06/13/2024 16:38:25 06/13/20 24 06/13/2024 URINA LYSIS , COMPL ETE W/ REFLE X TO CULTU RE urobilinogen NORMAL E.U./ dL normal Not Available [facility] [address] [place], [place] [address], [place], [address], 06/13/2024 16:38:25 06/13/20 24 06/13/2024 URINA LYSIS , COMPL ETE W/ REFLE X TO CULTU RE protein NEGATI VE mg/dL negati ve Not Available [facility] [address] [place], [place] [address], [place], [address], 06/13/2024 16:38:25 06/13/20 24 06/13/2024 URINA LYSIS , COMPL ETE W/ REFLE X TO CULTU RE nitrite NEGATI VE negati ve Not Available [facility] [address] [place], [place] [address], [place], [address], 06/13/2024 16:38:25 06/13/20 24 06/13/2024 URINA LYSIS , COMPL ETE W/ REFLE X TO CULTU RE blood, urine NEGATI VE mg/dL negati ve Not Available [facility] [address] [place], [place] [address], [place], [address], 06/13/2024 16:38:25 06/13/20 24 06/13/2024 URINA LYSIS , COMPL ETE W/ REFLE X TO CULTU RE leukocytes NEGATI VE [place]/u L negati ve A micro scopi c will refle x for: > or = trace blood , > or = 25 leuko cytes , + Nitri evelina or > or = 1+ prote in. Urine cultu re will refle x when any of the follo wing crite joseph is met: + Nitri evelina > or = 75 leuko cytes > or = 6 WBC/h pf Many bacte joseph and/o r any amoun t of yeast on micro scopi c. Not Available [facility] [address] [facility] [address] [facility] [address], [place], [address], 06/13/2024 16:38:25 06/13/20 24 06/13/2024 VITAM IN B-12 vitamin B-12 1183 pg/mL 232 - 1245 Not Available [facility] [address] [facility] [address] [place], [address], 06/13/2024 16:44:36 06/13/20 24 06/13/2024 TSH W/REF RODRI TO FT4 TSH w/reflex FT4 3.5700 uIU/m L 0.2700 - 4.2000 Not Available [facility] [address] [facility] [address] [facility], [place], [address], 06/13/2024 16:44:43 06/13/20 24 06/13/2024 VITAM IN D, 25-HY DROXY vitamin D, 25 hydroxy 39.20 NG/mL >=30.0 0 The [place] L[place] y Found ation consi ders level s < 30 ng/mL to be insuf ficie nt or defic ient. Not Available [facility] [address] [facility], [place], [address], 06/13/2024 16:44:46 06/13/20 24 06/13/2024 CRP, C-SERGEI CTIVE PROTE IN CRP <5.0 mg/L <8.0 Not Available [facility] [address], [place], [address], 06/13/2024 17:30:24 06/13/20 24 06/15/2024 SED RATE, WESTE RGREN sed rate by modified westergren 6 mm/h < or = 30 normal Not Available [facility] [address], [place], [address], 06/15/2024 03:24:46 06/13/20 24 06/13/2024 VENIP UNCTU RE results Compl ete Not Available [facility] [address], [place], [address], 06/13/2024 10:39:10 06/14/20 24 01/19/2024 MAMMO , scree ace, tomos ynthe sis, bilat eral No observ ation record ed. BARCODE [facility] All [address]ations, [place], [address], 06/14/2024 14:41:16 06/15/20 24 01/19/2024 MAMMO , scree ace, tomos ynthe sis, bilat eral No observ ation record ed. [facility] All Locations, [place], [address], 06/15/2024 09:13:35 Result Notes None recorded. 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 Not Available [facility] 2 12:18:46 Osteopeni a 708803975 Active 2019 Not Available [facility] 2 12:18:46 Irritable bowel syndrome 09548551 Active 2019 Not Available [facility] 2 12:18:46 Osteoarth ritis 255553535 Active 2019 Not Available [facility] 2 12:18:46 Vitamin D deficienc y 88557914 Active 2019 Not Available [facility] 2 12:18:46 Anxiety 32713663 Active 2019 Not Available [facility] 2 12:18:46 Single major depressiv e episode Active 2019 Not Available [facility] 2 12:18:46 Lumbosacr al radiculit is 46110914 Active 2019 Not Available [facility] 2 12:18:46 Systemic lupus erythemat osus 16109788 Active 2019 Not Available [facility] 2 12:18:46 History of herpes zoster 41703900466 9108 Active 2022 Amparo Duran MD [address], [place], [address] , [facility], [facility] 3 15:04:21 Gastro-es ophageal reflux disease with esophagit is 387287940 Active 2023 Donald Dave MD [address], [place], [address] , [facility], [facility] 4 10:29:15 Cervical radiculop athy 70001459 Active 2023 Donald Dave MD [address], [place], [address] , [facility], [facility] 4 10:25:48 Problem Notes None recorded. Procedures Surgical History Date Name Laterality Status Provider Name and Address Organization Details Recorded Time 06/13/20 24 Quality Advanced Care Planning completed Gregg [facility], [facility] 06/09/2024 14:48:05 06/13/20 24 Quality Incontinence Screening completed Gregg Cunha [facility], [facility] 06/09/2024 14:48:05 06/13/20 24 Medicare AWV Subsequent completed Greggandreina Cunha [facility], [facility] 06/09/2024 14:48:05 01/19/20 24 screening mammography completed Donald Dave MD [address], [place], [address], [facility], [facility] 06/13/2024 10:24:32 11/26/19 24 G2211 completed Donald Dave MD [address], [place], [address], [facility], [facility] 11/26/2023 11:37:36 12/08/19 23 Date of Last Pap Smear completed Donald Dave MD [address], [place], [address], [facility], [facility] 12/03/2023 10:24:21 06/23/20 21 Quality Functional Assessment completed [facility] 06/23/2021 10:09:24 06/23/20 21 Quality Medication Reviewed and Updated completed [facility] 06/23/2021 10:09:24 06/23/20 21 Quality Fall Risk Assessment Low Risk completed Gregg [facility] 06/23/2021 10:09:24 06/23/20 21 Quality BMI with follow up completed Greggandreina Cunha [facility] 06/23/2021 10:09:24 06/23/20 21 Quality Advanced Care Planning completed Greggandreina Cunha [facility], [facility] 06/23/2021 10:09:24 06/23/20 21 Quality Incontinence Screening completed Greggandreina Cunha [facility], [facility] 06/23/2021 10:09:24 06/23/20 21 Medicare AWV - Screening Schedule completed Donald Dave MD [address], [place], [address], [facility], [facility] 06/23/2021 13:09:11 06/23/20 21 Counseling: Advanced care planning completed Donald Dave MD [address], [place], [address], [facility], [facility] 06/23/2021 13:09:34 10/17/19 Colonoscopy completed Donald Dave MD [address], [place], [address], [facility], [facility] 10/23/2020 09:44:46 10/17/19 EGD-Upper Endoscopy completed Donald Dave MD [address], [place], [address], [facility], [facility] 10/23/2020 09:45:09 06/24/20 Fit-DNA / Cologuard completed Donald Dave MD [address], [place], [address], [facility], [facility] 06/29/2020 15:10:09 06/13/20 Quality Functional Assessment completed Gregg Cunha [facility], [facility] 06/13/2020 08:42:34 06/13/20 20 Quality Medication Reviewed and Updated completed Gregg Cunha [facility], [facility] 06/13/2020 08:42:34 06/13/20 Medicare AWV Questionnaire completed Donald Dave MD [address], [place], [address], [facility], [facility] 06/13/2020 13:01:30 06/13/20 20 Quality Fall Risk Assessment Low Risk completed Gregg Cunha [facility], [facility] 06/13/2020 08:42:34 06/13/20 20 Quality BMI with follow up completed Gregg Cunha [facility], [facility] 06/13/2020 08:42:34 06/13/20 20 Quality Advanced Care Planning completed Gregg Cunha [facility], [facility] 06/13/2020 08:42:34 06/13/20 20 Quality Incontinence Screening completed Gregg Cunha [facility], [facility] 06/13/2020 08:42:34 06/08/20 Colonoscopy completed Donald Dave MD [address], [place], [address], [facility], [facility] 06/13/2020 09:15:55 cholecystectomy completed Amparo Duran MD [address], [place], [address], [facility], [facility] 08/10/2019 05:25:43 Del fundoplication completed Amparo Duran MD [address], [place], [address], [facility], [facility] 08/10/2019 05:26:27 Imaging Results None recorded. Procedure Notes None recorded. Medical Equipment None Reported. Allergies No known drug allergies Medications Name Sig Start Date Stop Date Status Note LastModified by Organization Details LastModified Time doxycycline hyclate 100 mg capsule Take 1 capsule twice a day by oral route for 7 days. 12/02 completed Not Available Not Available Not Available Zithromax Z-Андрей 250 mg tablet TAKE 2 TABLETS (500 MG) BY ORAL ROUTE ONCE DAILY FOR 1 DAY THEN 1 TABLET (250 MG) BY ORAL ROUTE ONCE DAILY FOR 4 DAYS 11/25 completed Not Available Not Available Not Available omeprazole 40 mg capsule,del ayed release Take 1 capsule every day by oral route for 14 days. 06/03 completed Not Available Not Available Not Available Depo-Medrol 80 mg/mL suspension for injection Take 1 mL by injection route. 06/23 completed Not Available Not Available Not Available famotidine 20 mg tablet Take 1 tablet every day by oral route. active Not Available Not Available No t Available docusate sodium 100 mg capsule TAKE 1 TO 2 CAPSULES NEEDED ONCE A DAY ORALLY 30 DAY(S) 08/10 completed Not Available Not Available Not Available raloxifene 60 mg tablet Take 1 tablet every day by oral route for 90 days. 06/13 completed Not Available Not Available Not Available clindamycin 2 % vaginal cream INSERT 1 APPLICATO RFUL (100 MG) BY VAGINAL ROUTE ONCE DAILY AT BEDTIME FOR 7 DAYS 08/10 completed Not Available Not Available Not Available gabapentin 100 mg capsule Take 1 capsule every day by oral route at bedtime for 90 days. 11/19 completed Not Available Not Available Not Available dexamethaso ne sodium phosphate 4 mg/mL injection solution Inject 2 mL by intramusc ular route. 06/23 completed Not Available Not Available Not Available estradiol 0.01% (0.1 mg/gram) vaginal cream INSERT 1 G TWICE A WEEK BY VAGINAL ROUTE AT BEDTIME . 08/10 completed Not Available Not Available Not Available Bactrim DS 800 mg-160 mg tablet Take 1 tablet every 12 hours by oral route for 7 days. 08/18 completed Not Available Not Available Not Available Vitamin C 1 tablet every day active Not Available Not Available No t Available cyanocobala min (vitamin B-12) active Not Available Not Available Not Available vitamin E 1 tablet every day active Not Available Not Available No t Available Fish Oil 1 tablet every day active Not Available Not Available No t Available multivitami n 1 tablet every day active Not Available Not Available No t Available magnesium 400 mg (as magnesium oxide) tablet Take 1 tablet every day by oral route. active Not Available Not Available No t Available Paxlovid 300 mg (150 mg x 2)-100 mg tablets in a dose pack Take 3 tablets twice a day by oral route for 5 days, for covid. 11/25 completed Not Available Not Available Not Available Vitals Date Recorded Body height Body mass index (BMI) Body weight Heart rate Oxygen saturation Oxygen saturation in Arterial blood by Pulse oximetry Respiratory rate Body temperature Systolic And Diastolic Provider Name and Address Organization Details Last Updated DateTime 4 152.4 cm 21.3 kg/m2 07750.5 7 g 66 /min 99 % 99 % 14 /min 98 [degF] 128/72 mm[Hg] Gladis LAND - [facility], [facility] 4 16:29:11 Date Recorded Body height Body mass index (BMI) Body weight Body temperature Heart rate Oxygen saturation Oxygen saturation in Arterial blood by Pulse oximetry Systolic And Diastolic Provider Name and Address Organization Details Last Updated DateTime 3 152.4 cm 21.3 kg/m2 37395.5 7 g 97.9 [degF] 56 /min 100 % 100 % 119/74 mm[Hg] Jina Cunha [facility], [facility] 3 12:21:30 Date Recorded Body height Body mass index (BMI) Body weight Body temperature Heart rate Respiratory rate Oxygen saturation Oxygen saturation in Arterial blood by Pulse oximetry Systolic And Diastolic Provider Name and Address Organization Details Last Updated DateTime 4 152.4 cm 20.7 kg/m2 54459.7 9 g 98 [degF] 66 /min 16 /min 99 % 99 % 118/70 mm[Hg] Gregg Cunha [facility], [facility] 4 08:36:06 Date Recorded Body height Body mass index (BMI) Body weight Body temperature Heart rate Respiratory rate Oxygen saturation Oxygen saturation in Arterial blood by Pulse oximetry Systolic And Diastolic Provider Name and Address Organization Details Last Updated DateTime 4 152.4 cm 20.7 kg/m2 80591.7 9 g 98.4 [degF] 74 /min 16 /min 99 % 99 % 110/60 mm[Hg] Gergg Cunha [facility], [facility] 4 10:11:44 Date Recorded Body height Body mass index (BMI) Body weight Body temperature Heart rate Respiratory rate Oxygen saturation Oxygen saturation in Arterial blood by Pulse oximetry Systolic And Diastolic Provider Name and Address Organization Details Last Updated DateTime 4 152.4 cm 20.3 kg/m2 09267.6 1 g 98.2 [degF] 73 /min 16 /min 99 % 99 % 110/60 mm[Hg] Gregg Cunha [facility], [facility] 4 10:11:22 Social History Question Answer Notes LastModified by Organizat ion Details LastModified Time Tobacco Smoking Status Never Smoker Amparo Duran MD [address], [address], [facility], [facility] 08/10/2019 05:26:42 Do You Have An Advance Directive? No [email or web address] Information not available 06/23/2021 How Much Tobacco Do You Chew? None Information not available 08/10/2019 What Type Of Diet Are You Following? REGULAR [email or web address] Information not available 06/23/2021 Which Illicit Or Recreational Drugs Have You Used? Denies Information not available 08/10/2019 Alcohol Use No [email or web address] Information n ot available 06/13/2020 Marital Status Informatio n not available 06/23/2021 What Was The Date Of Your Most Recent Tobacco Screening? 06/13/2024 [email or web address] Information not available 06/13/2024 What Is Your Relationship Status? [email or web address] Information not available 11/26/2023 How Much Tobacco Do You Smoke? No Information not available 06/13/2020 Sex: Female Functional Status Question Answer Note LastModified by Organizat ion Details LastModified Time What is your level of alcohol consumption? None [email or web address] Information not available 06/13/2020 Do you or have you ever used smokeless tobacco? Never used smokeless tobacco Information not available 08/10/2019 Do you or have you ever used e-cigarettes or vape? Never used electronic cigarettes Information not available 08/10/2019 What is your exercise level? Occasional [email or web address] Information not available 06/23/2021 Mental Status None recorded. Family History Relationship Description Onset Age of this Age Resolved Age Notes LastModified by Organization Details LastModified Time Mother Arthritis [email or web address] Not availab le 07/04/2020 08:30:24 Medical History Condition Response Cancer (location) N Other Y Gout N Thyroid Disease Y Kidney Stones N Emphysema/COPD N Measles/Mumps N Sexually Transmitted Disease N Depression N Prostate Problems N Vascular Disease N Rash/Skin Condition N Amputation (location) N Parkinson's N Paralysis N Cardiac Pacemaker/defibrillator N Headaches/Migraines N Nerve Damage / Neuropathy N Arthritis N Sleep disorder/Insomnia N Heart disease / Heart Attack N Crohn's Disease N HIV/AIDS N Stroke/TIA N Colon Problems N High Cholesterol N Serious Injuries N Kidney Disease N Memory Loss/Alzheimer's N High blood pressure N Gallbladder disease N Congestive heart failure N Falls N Hormone Replacement N Blood Thinner Treatment N Alcohol Overuse N Nervous Breakdown N Cornejo's Esophagus N Anemia N Urinary Problems N Colon Polyps N Gastritis N Hospitalizations (other than operations) N Diabetes N Back pain N Rheumatic Fever N Bleeding Disorder N Cardiac Arrhythmias /irregular heart rat e N Osteopenia/Osteoporosis N Anxiety/Stress N Vision Problems N Asthma N Erectile / Sexual Dysfunction N Ostomies (location) N Seizures N Sleep Apnea N Jaundice N Hepatitis N Cirrhosis N GERD/Ulcer N Chicken Pox N Allergies (other than meds) N Gynecological History Statement/Question Response Abnormal Pap N Date of Last Pap Smear 12/07/2022 Obstetrics History GPAL:G 0 P 0 0 0 0 Immunizations Vaccine Type Date Status Note Provider Nam e and Address Organization Details Recorded Time COVID-19, mRNA, LNP-S, PF, 30 mcg/0.3 mL dose 1 completed Olive Ortel [employer] [place] [employer] [facility] 08/18/2022 14:49:04 COVID-19, mRNA, LNP-S, PF, 30 mcg/0.3 mL dose 1 completed Not Available [facility] 08/12/2023 10:57:02 COVID-19, mRNA, LNP-S, PF, 30 mcg/0.3 mL dose 1 completed Oilve Ortel [employer] [place] [facility] 08/18/2022 14:49:04 COVID-19, mRNA, LNP-S, PF, 30 mcg/0.3 mL dose, janina-sucrose 2 completed Not Available [facility] 08/12/2023 10:57:02 COVID-19, mRNA, LNP-S, PF, 50 mcg/0.5 mL 4 completed Donald Dave MD [address], [place], [address], [facility] [employer] [facility] 06/13/2024 10:17:47 Influenza, MDCK, quadrivalent , PF 1 cancelled patient objection Donald Dave MD [address], [place], [address], [facility] [employer] [facility], [facility] 06/03/2021 12:10:29 Past Encounters Encounter ID Performer Location Encounter Start Date Encounter Closed Date Diagnosis/Indication Diagnosis SNOMED-CT Code Diagnosis ICD10 Code Diagnosis Note [id number] MD STEFAN Major [address] [place] [address] 08/10/2019 09:16:22 08/10/2019 10:16:48 Sj gren's syndrome 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 M35.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 Gastroesop hageal reflux disease 890037500 K21.9 Malabsorpt ion syndrome 98409086 K90.9 Vitamin D deficiency 347 14231 E55.9 Osteopenia 710959246 M85 .80 Disorder o f adrenal gland 47080671 E27.9 [id number] Amparo Duran MD [facility] [address] [facility] [place] [address] 10/05/2019 07:44:32 10/05/2019 08:45:26 Hyperthyroidism 77110745 E05.90 Osteopenia 082661204 M85 .80 Gastroesop hageal reflux disease 287058616 K21.9 severe not a candidate for po meds bisphospho nates Anxiety 23833577 F41.9 [id number] Donald Dave MD [facility] [address] [place] [address] 06/13/2020 08:05:13 06/13/2020 09:21:38 Adult health examination 461298910 Z00.00 Annual Wellness Visit done today Normal bod y mass index 23000926 Z68.20 BMI on chart and recorded for quality measure documentat ion Hyperthyro idism with Greg disease 92528453 E06.3 Euthyroid as per lab results in January 2020 Osteopenia 622593835 M85 .80 Sj gren's syndrome 22748373 M35.00 used to be on prednisone in the past, re-check labs Single justina or depressive episode 840988433 F32.1 new diagnosis, referral to psychiatri st needed. Refusing pharmacolo gic treatment. Follow up as scheduled. Cholesterol screening 27 7854264 Z13.220 Viral screening 89368260 4 Z11.59 High risk for Hepatitis C for all adults Screening mammography 24 145296 Z12.31 Lumbosacra l radiculitis 86232712 M54.17 ongoing problem, start with x-rays, then PT Screening for malignant neoplasm of colon 497412956 Z12.12 Z12.11 patient unable or unwilling to have colonoscop y; alternativ e screening ordered Cervical radiculitis 110 25163 M54.12 [id number] Donald Dave MD [facility] [address] [place] [address] 07/04/2020 08:17:11 07/04/2020 09:02:12 Systemic lupus erythematosus 74761799 M32.9 significan tly positive MISHA titer, Sjogren antibody panel negative Impacted c erumen of bilateral ears 1553760640 275486 H61.23 Debrox and lavage protocol Gluteal tendinitis 08258 003 M76.02 M50.10 pain management tomorrow for treatment Cervical radiculitis 110 07927 M54.12 commence pain management Lumbosacra l radiculitis 79592728 M54.17 PT & pain management Moderate m ajor depression, single episode 20771901 F32.1 unchanged but refuses psychiatry consultati on and treatment. [id number] Donald Dave MD [facility] [address] [place] [address] 07/08/2020 11:29:56 07/08/2020 12:55:32 Impacted cerumen of bilateral ears 7135495006 240855 H61.23 Debrox and lavage protocol [id number] Donald Dave MD [facility] [address] [place] [address] 07/11/2020 13:43:16 07/11/2020 16:42:04 Impacted cerumen in right ear 5306380502 794908 H61.21 [id number] Donald Dave MD [facility] [address] [place] [address] 09/03/2020 11:03:48 09/03/2020 11:26:10 Gastroesophageal reflux disease 084095816 K21.00 recurrence of a chronic problem that was in remission for a year, systemic symptoms now present such as epigastric pain & heartburn. will initiate testing & treatment as per orders [id number] Donald Dave MD [facility] [address] [place] [address] 06/03/2021 11:35:36 06/03/2021 12:09:30 Administration of influenza vaccine 84554766 Z23 Gluteal tendinitis 50575 003 M76.02 M76.32 has a recurrence today, severe, will provide IM steroids, refer to PT, moist heat compresses . Saw Dr Ramirez last year for the same problem. Pain in le ft lower limb 030539018 M79.605 due to h/o prolonged immobility in car while travelling long-dista nce, r/o DVT. [id number] Donald Dave MD [facility] [address] [place] [address] 06/23/2021 09:41:07 06/23/2021 10:34:48 Adult health examination 250788431 Z00.00 Annual Wellness Visit done today Counseling 493014977 Z71 .9 End of Life and advance directives discussed today. [employer] [place] given to patient with follow up instructgurpreet malik. Single justina or depressive episode 377741522 F32.0 chronic, stable. treatment needed but refused. She wishes to consult psychiatri [facility]. Follow up as scheduled. 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 Elevate affected lower limb. Sting by bee 446334059 W 57.XXXA sting was removed and now she has a developing cellulitis on that foot. OK to apply ice and take tylenol & benadryl. No need for steroids at this time. Systemic l upus erythematosus 26441277 M32.9 stable, significan tly positive MISHA titer, Sjogren antibody panel negative, refused all treatments , has seen rheumatolo gist Sj gren's syndrome 35716548 M35.00 stable, used to be on prednisone in the past but refused, monitor for worsening symptoms [id number] Amparo Duran MD [facility] [address] [place] [address] 08/18/2022 06:59:34 08/18/2022 15:16:11 Osteopenia 921063473 M85.80 DexaExam date: 09/28/2019 Total HipT-score minus 2.3 Lumbar SpineT-sco re minus 1.5 Hip Left Femoral NeckT-scor e minus 2.0======= ========= Dexa now we can consider Reclast x 1 dose or 2 doses after Dexa chronic stable Hyperthyro idism with Greg disease 42364878 E06.3 chronic stable Hyperthyroidism 41524266 E05.90 resolved Now hypothyroi d we will not rx Lt4 wait september then decide Gastroesop hageal reflux disease 358426216 K21.9 severe not a candidate for po meds bisphospho nates chronic stable Anxiety 61829943 F41.9 chronic stable History of herpes zoster 6244932273 34892 Z86.19 explained must get shingles vax Radicular pain 44897931 M54.10 likely due to shingles chronic try low dose gabapentin at night let me know-radha l Sj gren's syndrome 16135278 M35.00 chronic stable Body mass index 20-24 - normal 196713911 Z68.21 [id number] [facility] [address] [place] [address] 11/19/2022 11:56:52 11/19/2022 12:57:02 Blepharospasm 69830454 G24.5 [id number] [facility] [address] [place] [address] 08/12/2023 15:17:52 08/12/2023 17:48:49 Cough 83953554 R05.9 Rhinitis 87423028 J00 Acute COVID-19 326675874 8 U07.1 [id number] Donald Dave MD [facility] [address] [place] [address] 11/26/2023 08:23:13 11/26/2023 08:51:58 Acute pharyngitis 302106173 J02.9 acute, start doxycyclin e 100 mg BID for 7 days, continue warm saltwater gargles Systemic l upus erythematosus 88060903 M32.9 stable, significan tly positive MISHA titer, Sjogren antibody panel negative, refused all treatments , has seen rheumatolo gist in [place] Sj gren's syndrome 79501330 M35.00 stable, used to be on prednisone in the past but refused, monitor for worsening symptoms Hyperthyro idism with Greg disease 00341844 E06.3 Euthyroid as per lab results in January 2020, recheck Pure hypercholesterolemia 066468556 E78.00 chronic, stable, follow 'heart-hea lthy' diet Screening mammography 24 273191 Z12.31 Menopausal symptom 38946 002 N95.1 post menopausal with risk of estrogen deficiency and bone loss Mild major depression, single episode 51672458 F32.0 chronic, stable, has a stress-gertrude e lifestyle conducive to mental health [id number] [facility] [address] [place] [address] 12/03/2023 09:52:59 12/03/2023 10:24:06 Gastro-esophageal reflux disease with esophagitis 152829403 K21.00 chronic, causes intermitte nt heartburn and hacky cough, past h/o hiatal hernia, recommend that she cosider GI conultatio n but she wishes to think about it Irritable bowel syndrome 30803066 K58.9 chronic, stable, in remission Sj gren's syndrome 45606270 M35.00 chronic, stable, used to be on prednisone in the past but refused, monitor for worsening symptoms [id number] [facility] [address] [place] [address] 06/13/2024 09:48:51 06/13/2024 10:48:56 Adult health examination 385820505 Z00.00 Medicare Annual Wellness Visit done today. Counseling 672037176 Z71 .[address] [facility] Value Based Patient Guide today. Sj gren's syndrome 07682841 M35.00 chronic, stable, used to be on prednisone in the past but refused, monitor for worsening symptoms Cervical radiculopathy 29158670 M54.12 M54.31 subacute, uncontroll ed. onset of pain and numbness several months ago, she should start PT now Mixed hyperlipidemia 267 274593 E78.2 chronic, uncontroll ed, recheck, follow heart healthy diet Osteopenia 869085024 M85 .80 chronic, continue exercise and supplement s Long-term drug therapy 276499697 Z79.891 Health Concerns Section Related Observation LastModified by Organization Detai ls LastModified Time None Recorded Concern Status LastModified by Organization Details LastModified Time None Recorded Advance Directives Directive N: Payers Insurance Date Sequence Insurance Name Policy Number Policy Haskins Covered Member ID Haskins Member ID Guarantor Name 10/18/2024 1 [employer] (MEDICARE REPLACEMENT /ADVANTAGE - PPO) [id number] Adarsh Lockett [id number] Damaris Lockett Notes Date Note Type Note Provider Name and Address Organization Details Recorded Time 3 text/html 61 y o f presents states that for the past 5 day has expereinced off and on left eye lid twitching with associated headache Raciel Muñoz, [employer] [address], [place], [address], [facility] - [facility], [facility] 11/19/2022 12:54:43 4 text/html 62 y o f presents states that for the past 3 days has expereinced ongoing cold symptoms cough nasal congestion body aches chills Express Covid Questions Are you feeling sick today? Includes any NEW symptom(s) among those listed previously that are NOT due to another health problem Yes Have you tested positive for COVID-19 in the past 10 days? No In the last 10 days, have you been exposed to someone who has tested positive for COVID-19? No Imported from [employer] on 08/12/2023 Raciel Toni, [employer] [address], [place], [address], [facility] [employer] [facility] 08/12/2023 17:31:33 4 text/html Sore ThroatReported bypatient.Reason for visit:acute complaint Quality:achy Severity:moderate 5/10 Duration:constant Onset/Timing:gradual;2 weeks ago Context:no other sick contacts Alleviating factors:nothing Aggravating factors:swallowing Associated Symptoms:no fever; no swollen lymph nodes; no exudates; no ear pain; no head congestion; no abdominal pain; no nausea; no vomiting; no fatigue Donald Dave MD [address], [place], [phone], [employer] [place] [employer] 11/26/2023 11:38:03 4 text/html GI Complaint*Reported bypatient.Reason for visit:continued care of chronic complaint GI Complaint*:GERD Severity:moderate 5/10; better Duration:constant Onset/Timing:gradual;a few years ago Treatments:surgery (hiatal hernia) Alleviating Factorsprescription Rx Aggravating Factors:laying down Associated Symptoms:heartburn; no fever; no chills; no blood in the urine; no shortness of breath; no nausea; no vomiting; no diarrhea; no constipation; no black or tarry stools; no red blood stool; no decreased appetite Donald Dave MD [address], [place], [address], [facility] 12/03/2023 10:30:24 4 text/html Back PainReported bypatient.Reason for visit:establishing care Location:lumbar;pain radiates to buttock(s)(right) Quality:dull/achy Severity:moderate 5/10 Duration:constant Onset/Timing:gradual;a few months ago Alleviating Factors:nothing Aggravating Factors:movement/position ing Associated Symptoms:denies fever; denies weak limbs; denies numbness of the legs/feet; denies dysuria; denies tingling; denies incontinenceMedicare Annual Wellness VisitReported bypatient.Visit type:subsequent Medicare Annual Wellness visit Home Environmentlives with spouse Home Safetysmoke detector in home; no smokers in home; safe [place] Utilities/Financial Needsable to afford medications Transportationprivate car - patient as driver helper DMEnone Mobilityno assistive devices needed Diet and Nutritionregular diet Weightno weight change Physical Activitydoes not exercise on a regular basis Preventive Healthsees a dentist regularly: yes; wears sunscreen: yes; uses helmet for biking/motorcycling: no, does not ride; wears seatbelt: yes; sexual activity: refuses to answer Current Level of PainModerate pain: 5 Locationneck; left shoulder(s) Opioid Use and Risks of Opioid Use DisordersNo opioid use Behavioral Historyreviewed in social history Health Compared to Age Groupworse Health Since Last Visithealth is worse overall Hearingno loss of hearing Visionwears glasses for readers only Memory Lapses or [place] short-term memoryNeck PainReported bypatient.Reason for visit:follow-up of acute complaint Location:lower neck;pain radiates to arm(s)}(left) Quality:sharp/stabbing;ti ngling Severity:moderate 5/10; unchanged Onset/Timing:a few months ago Alleviating Factors:nothing Aggravating Factors:turning head Associated Symptoms:numbness of the arms/hands(left); denies fever; denies weak limbs; denies tingling; denies headache Donald Dave MD [address] [address], [place], [address], [facility] - [facility], [facility] 06/13/2024 10:38:19 OBGyn Episode No OBEpisode recorded.
--- OUTSIDE RECORDS SUMMARY | 2025-02-20 12:48 | XMS_ITS | Clinical Summary ---
Author Organization [facility] Address [address] [place] [address] Phone Care Team Providers Care Signals Intelligence Analysis Manager Name Role Phone Ruslan Courtney MD Primary Care Provider [phone] Allergies Active Allergy Reactions Criticality Noted Date Comments Aspirin 04/03/2021 Medications therapeutic multivitamin tablet Take 1 tablet by mouth daily. Active vitamin E 400 UNIT capsule Take 400 Units by mouth daily. Active ascorbic acid, vitamin C, (VITAMIN C) 500 MG tablet Take 1,000 mg by mouth daily. Active omega-3 fatty acids-fish oil 340-1,000 mg Cap Take by mouth daily. Active cholecalciferol (VITAMIN D3) 5,000 unit capsule Take 1 capsule (5,000 Units total) by mouth daily. 30 capsule 2 Active famotidine (PEPCID) 20 MG tablet Take 1 tablet by mouth 2 (two) times a day as needed. Active Active Problems Problem Noted Date Diagnosed Date Keratoconjunctivitis sicca o f both eyes not due to Sjogren's syndrome 04/03/2021 Assessment & Plan (01/19/2022 11:25 AM EDT): Keep well-hydrated. Avoid spicy and acidic foods. Diligent eyes and mouth hygiene. Regular ocular and dental checkups. Assessment & Plan (04/03/2021 9:34 PM EDT): Keep well-hydrated. Avoid spicy and acidic foods. Diligent eyes and mouth hygiene. Regular ocular and dental checkups. 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 Keep headboard elevated at 45 angle for nighttime. Assessment & Plan (04/03/2021 9:34 PM EDT): Avoid late, large, spicy meals. Keep headboard elevated at 45 angle for nighttime. Arthralgia of multiple sites 04/03/2021 Assessment & Plan (01/19/2022 11:25 AM EDT): Joint protection, energy conservation. Gentle, regular exercise routine. Avoid falls, injuries, overuse. Keep body weight in ideal range for her height. She may benefit from topical cream such as Arnica, Biofreeze, Aspercreme versus medicated patches such as salonpas, icy hot patch 2-3 times daily and if necessary at bedtime x 3 weeks. Assessment & Plan (04/03/2021 9:34 PM EDT): Joint protection, energy conservation. Gentle, regular exercise routine. Avoid falls, injuries, overuse. Keep body weight in ideal range for her height. She may benefit from topical cream such as Arnica, Biofreeze, Aspercreme versus medicated patches such as salonpas, icy hot patch 2-3 times daily and if necessary at bedtime x 3 weeks. Osteopenia of multiple sites 04/03/2021 Assessment & Plan (02/02/2022 5:56 PM EDT): Proper calcium and vitamin D supplementation. Daily weightbearing exercises. Fall & fracture prevention strategies. Interval bone density requested to make sure that she does not require additional bone preserving therapy. Assessment & Plan (04/03/2021 9:37 PM EDT): Proper calcium and vitamin D supplementation. Daily weightbearing exercises. Forearm fracture prevention strategies. Interval bone density requested to make sure that she does not require additional bone preserving therapy. Paresthesias 04/03/2021 Assessment & Plan (04/03/2021 9:39 PM EDT): Proper hydration. Well-balanced nutritionally diet. Gentle, regular walking, stretching, massage in a circular motion after warm pack application. Consider topical capsaicin carefully over most painful/uncomfortable spots nightly x 3 weeks. If symptoms not better despite above measures consider low-dose amitriptyline versus gabapentin-pamphlets provided to read and write questions . MISHA positive 04/03/2021 Assessment & Plan (02/02/2022 5:55 PM EDT): Due to positive MISHA I took the liberty of getting more specific tests for systemic lupus erythematosus, mixed connective tissue disease to make sure that there are no additional abnormalities of concern. Except for positive dsDNA antibody there were no other abnormalities of concern. Continue daily sun protection, gentle, regular exercise routine. Well-balanced nutritionally diet, proper hydration. Sleep hygiene. Continue regular involvement in hobbies/favorite activities. Adhere to age-appropriate screenings and preventive strategies. Keep in touch over the phone if problems, questions. Assessment & Plan (04/03/2021 9:31 PM EDT): Due to positive MISHA I took the liberty of getting more specific tests for systemic lupus erythematosus, mixed connective tissue disease to make sure that there are no additional abnormalities of concern. Assuming that she has no abnormalities on ordered lab work and no clinical changes I asked her to repair for a follow-up in November 2021 upon arrival from [place]. Keep in touch over the phone if problems, questions. Vitamin D insufficiency 04/03/2021 Assessment & Plan (02/02/2022 5:56 PM EDT): Serum level requested prior to next visit in fall 2021 to make sure that she does not require additional supplementation to keep it in optimal range: 40-45 ng/ml. Assessment & Plan (04/03/2021 9:33 PM EDT): Serum level requested to make sure that she does not require additional supplementation. Optimal serum level should be around 40-45 ng/ml . Resolved Problems Problem Noted Date Diagnosed Date Resolved Date Age-related osteoporosis wit h current pathological fracture 04/03/2021 04/03/2021 Immunizations Immunization Administration Dates Next Due COVID-19 (Pre-05/24) Pfizer Vaccine, mRNA, PF Family History Medical History Relation Comments Arthritis Mother Glaucoma Mother Relation Status Comments Mother Social History Tobacco Use Types Packs/Day Years Used Date Smoking Tobacco: Former Smokeless Tobacco: Never Comments:very little in the past Education Answer Date Recorded Are you interested in more education? Not on ange e 11/28/2022 Are you concerned about learning? Not on file 11/28/2022 No 11/28/2022 No 11/28/2022 Digital Access Answer Date Recorded No 12/27/2022 No 12/27/2022 Reliable internet access at home? Not on file 12/27/2022 Device with a working camera? Not on file Comments Unknown Sex and Gender Information Value Date Recorded Sex Assigned at Not on file Legal Sex Female 9:45 AM EDT Gender Identity Not on file Sexual Orientation Not on file Last Filed Vital Signs Vital Sign Reading Time Taken Comments Blood Pressure 108/64 01/19/2022 11:08 AM EDT Pulse - - Temperature - - Respiratory Rate - - Oxygen Saturation - - Inhaled Oxygen Concentration - - Weight 47.6 kg (105 lb) 01/19/2022 11:08 AM EDT with shoes Height 152.4 cm (5') 04/03/2021 9:07 AM EDT Body Mass Index 20.51 04/03/2021 9:07 AM EDT Plan of Treatment Health Maintenance Due Date Last Done Comments Adult Td,Tdap Booster 1960 LIPID PANEL 1960 DEPRESSION SCREENING 1970 SMOKING Hx and SMOKELESS TOBACCO SCREENING 12/06/1971 HEPATITIS C SCREENING 1976 MAMMOGRAM 1998 COLOGUARD 12/06/2003 COLONOSCOPY 12/06/2003 COLORECTAL CANCER SCREENING 12/06/2003 FIT TEST 12/06/2003 FOBT 12/06/2003 SIGMOIDOSCOPY 12/06/2003 VIRTUAL COLONOSCOPY 12/06/2003 PNEUMOCOCCAL VACCINES (50+ years) (1 of 1 - PCV) 2008 ZOSTER VACCINES (1 of 2) 2008 OSTEOPOROSIS SCREENING INITIAL (ONE-TIME) 12/06/2023 COVID-19 VACCINE (2023- season) 2024 12/27/2021, 06/21/2021, 11/11/2020, Additional history exists RSV VACCINE (1 - 1-dose 75+ series) 2033 HEPATITIS A VACCINES Aged Out No long er eligible based on patient's age to complete this topic HIB VACCINES Aged Out No longer eligi ble based on patient's age to complete this topic MENINGOCOCCAL VACCINES (ACWY) Aged Out No longer eligible based on patient's age to complete this topic MENINGOCOCCAL VACCINES (B) Aged Out N o longer eligible based on patient's age to complete this topic Medical Devices Not on file [place] [address] [place] [address] MEDICARE REPLACEMENT [facility] MEDICARE REPLACEMENT [facility] MEDICARE [facility]PLACEMENT [facility] MEDICARE REPLACEMENT [facility] MEDICARE REPLACEMENT [facility] MEDICARE REPLACEMENT [facility] MEDICARE REPLACEMENT [facility] MEDICARE REPLACEMENT [employer] PPO MEDICARE REPLACEMENT Care Teams Signals Intelligence Analysis Manager Relationship Specialty Start Date End Date Ruslan Courtney MD [address] [place] [phone] PCP - General Internal Medicine 03/17/21 Additional Source Comments The information contained in this document represents components of the legal health record. It is not the complete legal health record.[facility]
== END 2025-02-20 12:07 | disposition home or self-care (01) ==
LOC: HO.HMCH 11:30
PROVIDERS: PCP Internal Medicine; Visit Provider Internal Medicine
DX: Z00.00 Encounter for general adult medical examination without abnormal findings (principal); K21.9 Gastro-esophageal reflux disease without esophagitis

== ENCOUNTER → 2025-02-20 11:30 | Outpatient (BNVA) | payer MEDICARE, SELFPAY | PROVIDERS: PCP Internal Medicine; Visit Provider Internal Medicine | DX: Z00.00 Encounter for general adult medical examination without abnormal findings (principal); K21.9 Gastro-esophageal reflux disease without esophagitis; M35.00 Sjogren syndrome, unspecified; M54.12 Radiculopathy, cervical region; M17.0 Bilateral primary osteoarthritis of knee; E78.00 Pure hypercholesterolemia, unspecified; R30.0 Dysuria; Z87.442 Personal history of urinary calculi | CPT/HCPCS: 96127; 99397 ==

== ENCOUNTER 2025-02-21 07:49 | Outpatient (REF) | payer MEDICARE, SELFPAY ==
--- OUTSIDE RECORDS SUMMARY | 2022-11-29 20:00 | XMS_ITS | Continuity of Care Document ---
Author Organization [facility] Address [address] [facility] [place] [address] Phone Care Team Providers Care Stone Carriage Operator Name Role Phone De OD, Mandi Unavailable [...] on Encounter [facility], [address] [place], [place], [id number] , [place] tel:[phone] [facility] Blepharospasm [address]. [address] [place], [address], [place]. tel:[phone] [facility], [facility] [place], [place], [id number] , [place] tel:[phone] [place] [facility] Exposure keratoconjunctiviti s, bilateralPuckering of macula, bilateralUnspecifie d superficial keratitis, bilateralOpen angle with borderline findings, low risk, bilateralCombined forms of age-related cataract, bilateralKeratoconj unctivitis sicca, not specified as Sjogren's, bilateral 2 Morchesky OD Sohan. [address], [place], [address], [place]. tel:[phone] [facility], [address] [place], [place], [id number] , tel: [phone] [facility] Cortical age-related cataract, bilateralSquamous blepharitis left eye, upper and lower eyelidsSquamous blepharitis right eye, upper and lower eyelidsPuckering of macula, bilateralKeratoconj unctivitis sicca, not specified as Sjogren's, bilateralAge-relate d nuclear cataract, bilateralOpen angle with borderline findings, low risk, bilateral Jul- 1 Morchesky OD Sohan. [address], [place], [address], [place]. tel:[phone] [facility], [address] [place] [address], [id number] , tel: [phone] [facility] Hordeolum internum left lower eyelidUnspecified blepharitis left eye, upper and lower eyelidsOpen angle with borderline findings, low risk, bilateral Sep-08 02- 1 [facility]. [address] [place] [address], [facility], . tel:[phone] [facility], [facility] [place], [place], [id number] , tel: [phone] [facility] Unspecified blepharitis left eye, upper and lower eyelidsOpen angle with borderline findings, low risk, bilateralHordeolum internum left lower eyelid Mar-0 - 1 [facility]. [address] [place] [address], [facility], . tel:[phone] Family History Family Member Type Diagnosis Age At Onset Mother Biological Problem (finding) Fhx of degen erative disorder of macula Payers Payer name Insurance type Covered republican ID Authoriza tion(s) No Information Social History [...] Instruction Additional Infor spring Impression/Plan Related to [facility] [place] revealed blepharospasm. Impression/Plan Related to [facility] [place] revealed a macular pucker. Impression/Plan Related to Open angle with borderline findings and low glaucoma risk in both eyes Impression/Plan Related to [facility] [place] revealed superficial keratitis.. Impression/Plan Related to Expos ure keratoconjunctivitis, bilateral Impression/Plan Related to [facility] reveals keratoconjunctivitis sicca. Impression/Plan Related to [facility] revealed cataract. Impression/Plan Related to [facility] [place] reveals keratoconjunctivitis sicca. Impression/Plan Related to [facility] revealed a macular pucker. Impression/Plan Related to [facility] Sub[facility] revealed cataract. 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 Impression/Plan Related to Exam Subtextual revealed squamous blepharitis. 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 in both eyes \nDiagnosis Code: 365.01 Impression/Plan Related to Diagn osis Description: Blepharitis of both upper and lower eyelid of left eye \nDiagnosis Code: 373.00 Impression/Plan Related to Diagn osis Description: Hordeolum internum left lower eyelid \nDiagnosis Code: 373.12 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 in both eyes \nDiagnosis Code: 365.01 Impression/Plan Related to Diagn osis Description: Blepharitis of both upper and lower eyelid of left eye \nDiagnosis Code: 373.00 Impression/Plan Related to Diagn osis Description: Hordeolum internum left lower eyelid \nDiagnosis Code: 373.12 Assessments Type Assessment Date No Information Patient Care Teams Name Effective Dates (start - stop) Status Members No Information
--- OUTSIDE RECORDS SUMMARY | 2025-02-21 07:52 | XMS_ITS | Clinical Summary ---
Author Organization [facility] Address [address] [place] [phone] Phone Care Team Providers Care Manager Costing Name Role Phone Ruslan Courtney MD Primary Care Provider [phone] Allergies Active Allergy Reactions Criticality Noted Date [...] follow-up in November 2021 upon arrival from [place]. Keep in touch over the phone if [...] topic Medical Devices Not on file [place] [address] [address] MEDICARE REPLACEMENT [facility] MEDICARE REPLACEMENT [facility] MEDICARE REPLACEMENT [facility] MEDICARE REPLACEMENT [facility] MEDICARE REPLACEMENT [facility] MEDICARE REPLACEMENT [facility] MEDICARE REPLACEMENT [facility] MEDICARE REPLACEMENT [employer] PPO MEDICARE REPLACEMENT Care Teams Manager Costing Relationship Specialty Start Date End Date Ruslan Courtney MD [address] [place] [phone] PCP - General Internal Medicine 03/17/21 Additional Source Comments The information contained in this document represents components of the legal health record. It is not the complete legal health record.[facility]
--- OUTSIDE RECORDS SUMMARY | 2025-02-21 07:52 | XMS_ITS | Patient Health Record ---
Author Organization [facility] Address [address] [address] Care Team Providers Care Tire Builder Heavy Service Name Role Phone geoff flower Primary Care Provider KALEE Harper Unavailable [phone] Allergies Allergen (clinical drug ingredient) Drug/Non Drug Allergy documented on EMR Reaction Allergy Type Onset Date Status aspirin Aspirin Unknown Drug Allergy Active Substance with sulfonamide structure and antibacterial mechanism of action (substance) Sulfa Antibiotics Unknown Drug Allergy Active Reason For Referral No Information Encounters Encounter Location Date Provider Diagnosis [facility] [address] [phone] 03/13/2024 KALEE AYON Plan Of Treatment No Information Insurance Providers Payer Name Payer Address Payer Phone Subscriber Number Group Number Insured Name Patient Relationship to Insured Coverage Start Date Coverage End Date [employer] [address] [address] [place] [address] [id number] Damaris Lockett Self - patient is the [...]
--- OUTSIDE RECORDS SUMMARY | 2025-02-21 07:52 | XMS_ITS | Clinical Summary ---
Author Organization [facility] it Address [address] [place] [address] Care Team Providers Care Comparator Operator Name Role Phone Ruslan Palmer MD Primary Care Provider [phone] Surgical History Surgery Date Site/Laterality Comments TONSILLECTOMY PROCEDURE: HISTORICAL TONSILLECTOMY; COMMENT: childhood ROTATOR CUFF REPAIR Right PROCEDURE: HISTORICAL ROTATOR CUFF REPAIR CHOLECYSTECTOMY PROCEDURE: HISTORICAL CHOLECYSTECTOMY OTHER SURGICAL HISTORY PROCEDURE: [place] UNLISTED LAPAROSCOPY PROCEDURE STOMACH; COMMENT: laproscopic Del fundoplication OTHER SURGICAL HISTORY PROCEDURE: HISTORY OTHER; COMMENT: hernia repair COLONOSCOPY 10/16/2020 PROCEDURE: HISTORICAL COLONOSCOPY; COMMENT: medium external hemorrhoids, normal colonoscopy w/ random biopsies ESOPHAGOGASTRODUODENOSCOPY 10/16/2020 PROCEDURE: NV ESOPHAGOGASTRODUODENOSCOPY TRANSORAL DIAGNOSTIC; COMMENT: barretts esophagus / [...] Procedure Name Priority Date/Time Associated Diagnosis Comments [facility] DEXA AXIAL SKELETON Routine 02/07/2024 8:35 AM EDT Other specified disorders of bone density and structure, multiple sites [facility] SCREENING DIGITAL Routine 01/20/2024 7:52 AM EDT Encounter for screening mammogram for malignant neoplasm of breast from Last 3 Months or Most Recently Relevant to Health Maintenance Results * [facility] DEXA AXIAL SKELETON (02/07/2024 8:35 AM EDT) Anatomical Region Laterality Modality Mammography 02/07/2024 7:41 AM EDT Narrative 02/07/2024 8:[address] [facility] Diagnostic Imaging Department [address] [place] [address] Patient: TANVIR SANTIAGO Adarsh /Age/Sex: 1960 - 63 - F Unit#: [id number] Location/Status: [facility] Mnemonic[facility] Ordering Physician: RUSLAN PALMER MD [facility] Dexa Axial Skeleton - 02/07/24828 Report Status:Signed [...] probability of hip fracture of 1.3%. Code 81706 Dictating Physician: TALI POOL MD Electronically Signed by: TALI POOL MD Dic Date/Time: 02/07/24833 Sign date/Time: 02/07/24834 Procedure Note Tali Pool MD - 05/17/2024 [facility] Diagnostic Imaging Department [address] [place] [address] Patient: JACKTANVIR Adarsh Castanon./Age/Sex: 1960 - 63 - F Unit#: [id number] [facility] Ordering Physician: RUSLAN PALMER MD [facility] Dexa Axial Skeleton - 02/07/24828 Report Status:Signed [...] density of the femurs bilaterally is 0.730 gm/du6sjmml is 72% of that of young normals [...] probability of hip fracture of 1.3%. Code 28962 Dictating Physician: TALI POOL MD Electronically Signed by: TALI POOL MD Dic Date/Time: 02/07/24833 Sign date/Time: 02/07/24834 Ruslan Palmer MD [facility] BI PROCEDURES Final Result * [facility] SCREENING DIGITAL (01/20/2024 7:52 AM EDT) Anatomical Region Laterality Modality Mammography 01/19/2024 9:50 AM EDT Narrative 01/20/2024 7:[address] [facility] Diagnostic Imaging Department [address] [place] [address] Patient: TANVIR SANTIAGO /Age/Sex: 1960 - 63 - F Unit#: [id number] Location/Status: SPDIMAM/REG CLI Mnemonic/Ordering Site: [facility] Ordering Physician: RUSLAN PALMER MD [facility] Screening Digital - 01/19/24 - 1025 Report Status:Signed EXAM: [facility] Screening Digital EXAM DATE AND TIME: 01/19/2024 10:26 AM HISTORY: Annual screening COMPARISON: 01/06/2023, 12/23/2021, 08/22/2020, 12/13/2018, 06/02/2017, 03/19/2016 TECHNIQUE: Bilateral digital breast tomosynthesis was performed in the CC and MLO projections. Computer aided detection with [employer] 3D 3.1 was employed. TISSUE DENSITY: c. [...] Procedure Note Bennett Kilgore MD - 05/17/2024 [facility] Diagnostic Imaging Department [address] [place] [address] Patient: TANVIR SANTIAGO /Age/Sex: 1960 - 63 - F Unit#: [id number] Location/Status: SPDIMAM/REG CLI Mnemonic/Ordering Site: [facility] Ordering Physician: RUSLAN PALMER MD [facility] Screening Digital - 01/19/24 - 1025 Report Status:Signed EXAM: [facility] Screening Digital EXAM DATE AND TIME: 01/19/2024 10:26 AM HISTORY: Annual screening COMPARISON: 01/06/2023, 12/23/2021, 08/22/2020, 12/13/2018, 06/02/2017, 03/19/2016 TECHNIQUE: Bilateral digital breast tomosynthesis was performed in the CCand MLO projections. Computer aided detection with [employer] 3D 3.1was employed. TISSUE DENSITY: c. The [...] Recently Relevant to Health Maintenance Care Teams Comparator Operator Relationship Specialty Start Date End Date Ruslan Palmer MD [address] [place] [address] J Luis [address] [facility] [place] [address] PCP - General Internal Medicine 03/06/21
[2025-02-21 10:18] LABS: Appearance Urine Clear; Glucose Urine UA Negative (Negative); PH 6.0 (5.0-9.0); Specific Gravity - Urine 1.015 (1.005-1.025); UMIC TRIGGER UACC YES
[2025-02-21 10:26] LABS: UACC Culture Trigger YES
[2025-02-21 10:27] LABS: MANUAL DIFF FLAG NO
[2025-02-21 10:38] LABS: Hematocrit 38.8 % (37.0-47.0); Hemoglobin 13.1 g/dl (12.0-16.0); Imm Gran Abs Auto 0.01 X10*3/uL (0.00-0.03); Imm Gran Pct Auto 0.2 % (0.0-0.4); Lymphocytes Absolute Auto 1.9 X10*3/uL (1.2-4.9); Mean Corpuscular HGB Conc 33.8 g/dl (31.0-35.0); Mean Corpuscular Hemoglobin 31.3 pg (27.0-33.0); Mean Corpuscular Volume 92.8 fL (80.0-98.0); NRBC Abs Auto 0.000 X10*3/uL (0.0-0.012); NRBC Pct Auto 0.0 /100WBC (0.0-0.2); Platelet Count 223 X10*3/uL (160-400); Red Blood Count 4.18 X10*6/uL (4.20-5.50); White Blood Count 5.0 X10*3/uL (4.8-10.8)
[2025-02-21 10:43] LABS: Hemoglobin A1C 136.1969 umol/L; Total Hemoglobin (HGBA1C) 3495.8036 umol/L
[2025-02-21 11:04] LABS: Alanine Aminotransferase 24 U/L (0-31); Albumin Level 4.2 g/dL (3.5-5.0); Alkaline Phosphatase 83 U/L (39-117); Anion Gap 11 (12-20); Aspartate Amino Transferase 31 U/L (5-31); Blood Urea Nitrogen 16 mg/dL (9-16); Calcium 8.8 mg/dL (8.4-10.2); Carbon Dioxide 27 mmol/L (22-29); Chloride 108 mmol/L (96-108); Cholesterol 193 mg/dL (<200); Estimated Glomerular Filt Rate > 60; HDL Cholesterol 63 mg/dL (>40); Magnesium 2.1 mg/dL (1.6-2.6); Potassium 4.0 mmol/L (3.3-5.1); Sodium 142 mmol/L (135-145); Total Protein 6.7 g/dL (6.5-8.0); Triglycerides 118 mg/dL (<150)
[2025-02-21 11:21] LABS: Folate 11.8 ng/mL (> or = 4.0); Free T4 (Free Thyroxine) 0.88 ng/dL (0.71-1.85); Thyroid Stimulating Hormone 3.04 uIU/mL (0.32-4.0); Vitamin B12 1052 pg/mL (200-900)
== END 2025-02-21 07:50 | disposition home or self-care (01) ==
LOC: HO.HMGCLDS 07:49
PROVIDERS: PCP Internal Medicine; Visit Provider Internal Medicine
DX: K21.9 Gastro-esophageal reflux disease without esophagitis (principal); E78.00 Pure hypercholesterolemia, unspecified
CPT/HCPCS: 36415; 80053; 80061; 81001; 82306; 82607; 82746; 83036; 83735; 84439; 84443; 85025; 85652; 87086